=== PATIENT | male | born 1955 | race Caucasian/White ===

== ENCOUNTER 2018-05-21 13:06 | Inpatient (IN) | payer OTHER ==
[~2018-05-21] VITALS: Ht 185.4 cm; Wt 90.7 kg
[~2018-05-21 13:06] MED LIST: MULT1TAB64 PO
--- NOTE | 2018-05-21 13:16 | ER Report ---
History and Physical Time Seen By MD: 13:16 HPI/ROS CHIEF COMPLAINT: Distended abdomen HISTORY OF PRESENT ILLNESS: 62-year-old male patient presents to emergency room with complaint of distended abdomen. Patient states that this been going on for the last 6 months. He states that typically his bowels will alternate between normal and diarrhea. He states that he was seen initially approximately 3 months ago and told that his stomach issue was related to nerves. He states that he went in and was seen at the [facility] acute[facility]care [facility] today. He states they did an abdominal x-ray noted that he had significant gaseous distention of the entir e intestines. At that time they wanted to go ahead and do a CT scan of the abdomen and pelvis, however his insurance refused that. He was referred to the emergency room for further evaluation. Patient states that he has a full sensation of his abdomen, he does not have any pain. He denies having any nausea, vomiting or diarrhea. Patient states that he's had diarrhea today. REVIEW OF SYSTEMS: Respiratory: No cough, no dyspnea. Cardiovascular: No chest pain, no palpitations. Gastrointestinal: As noted above Musculoskeletal: No back pain. Allergies: Coded Allergies: No Known Drug Allergies (Unverified , 07/28/14) Home Meds Reported Medications Multivitamin (MULTI VITAMIN DAILY) 1 Each Tablet, 1 EACH PO DAILY 07/28/14 Past Medical/Surgical History Patient has a past medical history of [place] hand Patient has a past surgical history of tonsillectomy, vasectomy. Reviewed Nurses Notes: Yes Constitutional Vital Sign - Last 24 Hours 05/21/18 05/21/18 05/21/18 05/21/18 13:11 13:14 13:17 13:21 Temp 98.7 Pulse 84 82 Resp 18 B/P (MAP) 131/100 131/100 (110) 135/91 (106) Pulse Ox 93 93 O2 Delivery Room Air 05/21/18 05/21/18 05/21/18 05/21/18 13:30 13:36 13:51 14:00 Pulse 76 76 B/P (MAP) 126/92 (103) 140/98 (112) Pulse Ox 93 93 05/21/18 05/21/18 05/21/18 05/21/18 14:06 14:21 14:30 14:36 Pulse 80 76 79 B/P (MAP) 151/100 (117) Pulse Ox 94 94 94 05/21/18 05/21/18 05/21/18 05/21/18 14:51 15:00 15:05 15:20 Pulse 78 ? B/P (MAP) ???/??? (1665) Pulse Ox 92 05/21/18 05/21/18 05/21/18 05/21/18 15:30 15:35 15:50 16:00 Pulse 75 76 B/P (MAP) 134/94 (107) 138/94 (109) Pulse Ox 91 91 05/21/18 05/21/18 05/21/18 05/21/18 16:05 16:20 16:30 16:35 Pulse 77 74 76 B/P (MAP) 119/92 (101) Pulse Ox 92 93 91 Physical Exam General Appearance: The patient is alert, has no immediate need for airway protection and no current signs of toxicity. Respiratory: Chest is non tender, lungs are clear to auscultation. Cardiac: regular rate and rhythm Gastrointestinal: Abdomen is distended and non tender, no masses, bowel sounds normal but tympanic. Musculoskeletal: Neck: Neck is supple and non tender. Extremities have full range of motion and are non tender. Skin: No rashes or lesions. DIFFERENTIAL DIAGNOSIS: After history and physical exam differential diagnosis was considered for bowel obstruction, partial bowel obstruction, cancer. Medical Decision Making Data Points Result Diagram: 05/21/18 0000 05/21/18 0000 Laboratory Hematology Test 05/21/18 00:00 05/21/18 13:11 Red Blood Count 5.38 M/uL (4.00-5.60) Mean Corpuscular Volume 91.3 fL (80.0-96.0) Mean Corpuscular Hemoglobin 31.1 pg (26.0-33.0) Mean Corpuscular Hemoglobin Concent 34.0 g/dL (32.0-36.0) Red Cell Distribution Width 13.4 % (11.5-14.5) Mean Platelet Volume 7.5 fL (7.2-11.1) Neutrophils (%) (Auto) 65.4 % (39.4-72.5) Lymphocytes (%) (Auto) 23.2 % (17.6-49.6) Monocytes (%) (Auto) 9.0 % (4.1-12.4) Eosinophils (%) (Auto) 1.8 % (0.4-6.7) Basophils (%) (Auto) 0.6 % (0.3-1.4) Nucleated RBC Relative Count (auto) 0.0 /100WBC Neutrophils # (Auto) 4.5 K/uL (2.0-7.4) Lymphocytes # (Auto) 1.6 K/uL (1.3-3.6) Monocytes # (Auto) 0.6 K/uL (0.3-1.0) Eosinophils # (Auto) 0.1 K/uL (0.0-0.5) Basophils # (Auto) 0.0 K/uL (0.0-0.1) Nucleated RBC Absolute Count (auto) 0.00 K/uL Sodium Level 141 mmol/L (137-145) Potassium Level 3.9 mmol/L (3.5-5.0) Chloride Level 106 mmol/L (98-107) Carbon Dioxide Level 25 mmol/L (22-30) Blood Urea Nitrogen 18 mg/dl (9-21) Creatinine 1.10 mg/dl (0.66-1.25) Glomerular Filtration Rate Calc > 60.0 Random Glucose 104 mg/dl (75-110) Calcium Level 9.1 mg/dl (8.4-10.2) Total Bilirubin 0.8 mg/dl (0.2-1.3) Aspartate Amino Transf (AST/SGOT) 19 U/L (0-35) Alanine Aminotransferase (ALT/SGPT) 26 U/L (0-56) Alkaline Phosphatase 77 U/L (0-126) C-Reactive Protein < 0.5 mg/dl (<1.0) Total Protein 7.4 g/dl (6.3-8.2) Albumin 4.2 g/dl (3.5-5.0) Amylase Level 60 U/L (0-110) Lipase 50 U/L (23-300) Urine Color Yellow Urine Clarity Clear Urine pH 5.0 pH (4.8-9.5) Urine Specific [place] 1.028 Urine Protein Negative mg/dL (NEGATIVE) Urine Glucose (UA) Negative mg/dL (NEGATIVE) Urine Ketones Negative mg/dL (NEGATIVE) Urine Blood Negative (NEGATIVE) Urine Nitrite Negative (NEGATIVE) Urine Bilirubin Negative (NEGATIVE) Urine Urobilinogen Negative mg/dL (0.2-1.9) Urine Leukocyte Esterase Negative (NEGATIVE) Urine RBC None /HPF (0-2/HPF) Urine WBC <1 /HPF (0-5/HPF) Urine Squamous Epithelial Cells None /LPF (</=FEW) Urine Bacteria Negative /HPF (NONE-FEW) Urine Mucus Few /HPF (NONE-FEW) Chemistry Test 05/21/18 00:00 05/21/18 13:11 White Blood Count 7.0 k/uL (4.5-11.0) Red Blood Count 5.38 M/uL (4.00-5.60) Hemoglobin 16.7 g/dL (14.0-18.0) Hematocrit 49.1 % (42.0-52.0) Mean Corpuscular Volume 91.3 fL (80.0-96.0) Mean Corpuscular Hemoglobin 31.1 pg (26.0-33.0) Mean Corpuscular Hemoglobin Concent 34.0 g/dL (32.0-36.0) Red Cell Distribution Width 13.4 % (11.5-14.5) Platelet Count 280 K/uL (150-450) Mean Platelet Volume 7.5 fL (7.2-11.1) Neutrophils (%) (Auto) 65.4 % (39.4-72.5) Lymphocytes (%) (Auto) 23.2 % (17.6-49.6) Monocytes (%) (Auto) 9.0 % (4.1-12.4) Eosinophils (%) (Auto) 1.8 % (0.4-6.7) Basophils (%) (Auto) 0.6 % (0.3-1.4) Nucleated RBC Relative Count (auto) 0.0 /100WBC Neutrophils # (Auto) 4.5 K/uL (2.0-7.4) Lymphocytes # (Auto) 1.6 K/uL (1.3-3.6) Monocytes # (Auto) 0.6 K/uL (0.3-1.0) Eosinophils # (Auto) 0.1 K/uL (0.0-0.5) Basophils # (Auto) 0.0 K/uL (0.0-0.1) Nucleated RBC Absolute Count (auto) 0.00 K/uL Glomerular Filtration Rate Calc > 60.0 Calcium Level 9.1 mg/dl (8.4-10.2) Total Bilirubin 0.8 mg/dl (0.2-1.3) Aspartate Amino Transf (AST/SGOT) 19 U/L (0-35) Alanine Aminotransferase (ALT/SGPT) 26 U/L (0-56) Alkaline Phosphatase 77 U/L (0-126) C-Reactive Protein < 0.5 mg/dl (<1.0) Total Protein 7.4 g/dl (6.3-8.2) Albumin 4.2 g/dl (3.5-5.0) Amylase Level 60 U/L (0-110) Lipase 50 U/L (23-300) Urine Color Yellow Urine Clarity Clear Urine pH 5.0 pH (4.8-9.5) Urine Specific [place] 1.028 Urine Protein Negative mg/dL (NEGATIVE) Urine Glucose (UA) Negative mg/dL (NEGATIVE) Urine Ketones Negative mg/dL (NEGATIVE) Urine Blood Negative (NEGATIVE) Urine Nitrite Negative (NEGATIVE) Urine Bilirubin Negative (NEGATIVE) Urine Urobilinogen Negative mg/dL (0.2-1.9) Urine Leukocyte Esterase Negative (NEGATIVE) Urine RBC None /HPF (0-2/HPF) Urine WBC <1 /HPF (0-5/HPF) Urine Squamous Epithelial Cells None /LPF (</=FEW) Urine Bacteria Negative /HPF (NONE-FEW) Urine Mucus Few /HPF (NONE-FEW) Urinalysis Test 05/21/18 13:11 Urine Color Yellow Urine Clarity Clear Urine pH 5.0 pH (4.8-9.5) Urine Specific [place] 1.028 Urine Protein Negative mg/dL (NEGATIVE) Urine Glucose (UA) Negative mg/dL (NEGATIVE) Urine Ketones Negative mg/dL (NEGATIVE) Urine Blood Negative (NEGATIVE) Urine Nitrite Negative (NEGATIVE) Urine Bilirubin Negative (NEGATIVE) Urine Urobilinogen Negative mg/dL (0.2-1.9) Urine Leukocyte Esterase Negative (NEGATIVE) Urine RBC None /HPF (0-2/HPF) Urine WBC <1 /HPF (0-5/HPF) Urine Squamous Epithelial Cells None /LPF (</=FEW) Urine Bacteria Negative /HPF (NONE-FEW) Urine Mucus Few /HPF (NONE-FEW) EKG/Imaging Imaging CT abdomen and pelvis with IV contrast Indication: Abdominal pain and distention. Comparison: None available. . Technique: Axial CT images were obtained through the abdomen and pelvis during injection of nonionic iodinated intravenous contrast. Reformatted coronal and sagittal images were also obtained. One of the following dose optimization techniques was utilized in the performance of this exam: Automated exposure control; adjustment of the mA a nd/or kV according to the patient's size; or use of an iterative reconstruction technique. Specific details can be referenced in the facility's radiology CT exam operational policy. Contrast: 75 ml of Isovue-370 IV contrast. Findings: Lower lung love: Limited views lower lung field are unremarkable. Liver: The dome of the liver does show a faint 1.3 cm hypodensity which is not a simple cyst. Lateral to this is some mild ill-defined enhancement. The liver shows no other focal abnormality. Biliary: Gallbladder is not visualized may been surgically removed. Biliary system is unremarkable. Pancreas: Fatty infiltration without focal abnormality. Spleen: Normal appearance. Adrenal glands: Unremarkable. Kidneys / retroperitoneum: No evidence of nephrolithiasis or hydronephrosis. Th e left kidney shows a 2.2 cm cyst and a tiny cyst. No solid renal lesion. The right kidney shows a subcentimeter hypodensity which is likely is tiny cyst without other focal abnormality. Bowel / peritoneum / mesenteries: The colon is diffusely mildly distended from the mid sigmoid region. At the mid sigmoid region there is a focal area of luminal narrowing and focal wall thickening without inflammation. The distention of the colon extends into the distal small bowel. The mid to proximal small bowel is unremarkable. No focal abnormalities otherwise seen in the GI tract. The stomach is unremarkable. The appendix appears normal. No free air, free fluid, fluid collections or areas of inflammation. Small umbilical hernia containing fat. Lymph node assessment: No pathologic adenopathy identified. Pelvic structures: Prostate is heterogeneous and enlarged causing impression to the urinary bladder. No other focal abnormality. The remaining pelvic structures visualized within normal limits. Vessels: No significant atherosclerotic calcifications seen throughout a nonan eurysmal abdominal aorta and branches. Musculoskeletal / Body wall: No acute or aggressive osseous abnormality. IMPRESSION: 1. The mid sigmoid colon does show focal area of luminal narrowing and wall thickening without inflammation. This could represent a contraction versus a sigmoid lesion. Proximal to this area the colon is distended which extends into the small bowel shows mild small bowel stasis distention of the distal small bowel is no other focal abnormality. The sigmoid process could be causing this early mild obstruction. Suggest a sigmoidoscopy for further evaluation to exclude a lesion. 2. The dome of liver does show a hypodense lesion which is not a simple cyst. This could represent a benign lesion such as adenoma or hemangioma. Lateral to this is a area of ill-defined enhancement which could be a vascular anomaly versus a ill-defined lesion. Suggest a follow-up nonemergent MRI of the liver, without and with contrast for further evaluation. 3. Left renal cyst. 4. Enlarged prostate which is heterogeneous causing impression to the urinary bladder. 5. Other chronic findings as above. I called report to MARLIN NORRIS at 05/21/2018 3:47 PM. Report Dictated By: Lazaro Ribera at 05/21/2018 3:36 PM Report E-Signed By: Lazaro Ribera at 05/21/2018 3:50 PM ED Course/Re-evaluation ED Course Patient was admitted to an exam room, history and physical were obtained. Differential diagnoses were considered. On examination patient has a very distended abdomen, the skin is tight. There is a lot of of bowel sounds. A CBC, CMP, urinalysis were obtained. Lab results were unremarkable. A CT scan of the abdomen and pelvis was done which showed significant dilation of the large intestine with narrowing in the mid sigmoid colon. I discussed the findings with the patient. I would patient does need to be admitted to the hospital. I spoke with Dr. Juárez, general surgeon and reviewed the case. He did agree to accept the patient for admission with plans to do a bowel prep and a colonoscopy. I discussed the plans with the patient and his and they verbalized understanding and agreement. Decision to Disposition Date: May 21, 2018 Decision to Disposition Time: 16:00 Depart Departure Latest Vital Signs Vital Signs Date Time Temp Pulse Resp B/P (MAP) Pulse Ox O2 Delivery O2 Flow Rate FiO2 05/21/18 16:35 76 91 05/21/18 16:30 119/92 (101) 05/21/18 13:11 98.7 18 Room Air Impression: Primary Impression: Colon obstruction Condition: Condition Unchanged Disposition: Admitted from ER AMRLIN NORRIS May 21, 2018 13:16
[2018-05-21] MEDS ORDERED: NS(*) 0.9% 1000 ML BAG 1,000 ML IV ONE (13:22)
[2018-05-21 13:42] LABS: PLATELET COUNT, AUTOMATED 280 K/uL (150-450)
[2018-05-21] MEDS ORDERED: BARIUM SULFATE 450 ML SUSP ONE (13:45)
[2018-05-21] MEDS ORDERED: IOPAMIDOL 76% 75 ML INFUS BTL 75 ML ONE (15:07)
--- NOTE | 2018-05-21 15:54 | RADIOLOGY IMAGING REPORT ---
FACILITY: [facility] PATIENT NAME: Neto Muñiz : 1955 MR: [id number] V: [id number] EXAM DATE: ORDERING PHYSICIAN: MARLIN NORRIS TECHNOLOGIST: Location: [facility] Patient: Neto Muñiz : 1955 Visit/Account:[id number] Date of Sevice: 05/21/2018 CT abdomen and pelvis with IV contrast Indication: Abdominal pain and distention. Comparison: None available. . Technique: Axial CT images were obtained through the abdomen and pelvis during injection of nonioni c iodinated intravenous contrast. Reformatted coronal and sagittal images were also obtained. One of the following dose optimization techniques was utilized in the performance of this exam: Autom ated exposure control; adjustment of the mA and/or kV according to the patient's size; or use of an i terative reconstruction technique. Specific details can be referenced in the facility's radiology C T exam operational policy. Contrast: 75 ml of Isovue-370 IV contrast. Findings: Lower lung love: Limited views lower lung field are unremarkable. Liver: The dome of the liver does show a faint 1.3 cm hypodensity which is not a simple cyst. Latera l to this is some mild ill-defined enhancement. The liver shows no other focal abnormality. Biliary: Gallbladder is not visualized may been surgically removed. Biliary system is unremarkable. Pancreas: Fatty infiltration without focal abnormality. Spleen: Normal appearance. Adrenal glands: Unremarkable. Kidneys / retroperitoneum: No evidence of nephrolithiasis or hydronephrosis. The left kidney shows a 2.2 cm cyst and a tiny cyst. No solid renal lesion. The right kidney shows a subcentimeter hypoden sity which is likely is tiny cyst without other focal abnormality. Bowel / peritoneum / mesenteries: The colon is diffusely mildly distended from the mid sigmoid region . At the mid sigmoid region there is a focal area of luminal narrowing and focal wall thickening wit hout inflammation. The distention of the colon extends into the distal small bowel. The mid to prox imal small bowel is unremarkable. No focal abnormalities otherwise seen in the GI tract. The stomac h is unremarkable. The appendix appears normal. No free air, free fluid, fluid collections or areas of inflammation. Small umbilical hernia containi ng fat. Lymph node assessment: No pathologic adenopathy identified. Pelvic structures: Prostate is heterogeneous and enlarged causing impression to the urinary bladde r. No other focal abnormality. The remaining pelvic structures visualized within normal limits. Vessels: No significant atherosclerotic calcifications seen throughout a nonaneurysmal abdominal aort a and branches. Musculoskeletal / Body wall: No acute or aggressive osseous abnormality. IMPRESSION: 1. The mid sigmoid colon does show focal area of luminal narrowing and wall thickening without infla mmation. This could represent a contraction versus a sigmoid lesion. Proximal to this area the colo n is distended which extends into the small bowel shows mild small bowel stasis distention of the dis starla small bowel is no other focal abnormality. The sigmoid process could be causing this early mild obstruction. Suggest a sigmoidoscopy for further evaluation to exclude a lesion. 2. The dome of liver does show a hypodense lesion which is not a simple cyst. This could represent a benign lesion such as adenoma or hemangioma. Lateral to this is a area of ill-defined enhancement which could be a vascular anomaly versus a ill-defined lesion. Suggest a follow-up nonemergent MRI o f the liver, without and with contrast for further evaluation. 3. Left renal cyst. 4. Enlarged prostate which is heterogeneous causing impression to the urinary bladder. 5. Other chronic findings as above. I called report to MARLIN NORRIS at 05/21/2018 3:47 PM. Report Dictated By: Lazaor Ribera at 05/21/2018 3:36 PM Report E-Signed By: Lazaro Ribera at 05/21/2018 3:50 PM WSN:[id number]
[2018-05-21] MEDS ORDERED: ONDANSETRON 4 MG/2 ML VIAL IVP PRN (16:15)
[2018-05-21] MEDS ORDERED: FLUSH 10 ML SYR IVP PRN (16:15)
[2018-05-21] MEDS ORDERED: ACETAMINOPHEN(*)1000 MG/100 ML 100 ML IVPB PRN (16:15)
[2018-05-21] MEDS ORDERED: NALOXONE HCL 0.4 MG/ML VIAL IVP PRN (16:15)
[2018-05-21 17:14] VITALS: BP 155/109
[2018-05-21] MEDS: NS(*) 0.9% 1000 ML BAG 1,000 ML IV PRN (19:09)
[2018-05-21 21:15] VITALS: BP 146/95
--- NOTE | 2018-05-21 21:20 | Gen Surgery History & Physical ---
History of Present Illness Chief Complaint Bloating History of Present Illness 62-year-old gentleman presented to the urgent care center and then was sent to the ER with a complaint of worsening abdominal bloating. He's had these symptoms for the last month but they have gotten worse in the last 10 days. He has continued to pass flatus and loose stools. No nausea or vomiting. He had a colonoscopy 4 years ago where a polyp was removed but it was not retrieved and it was recommended that he have another colonoscopy in 5 years. He was going to get a colonoscopy this July. He denies any blood in his stools. He has no known family history of colorectal cancer. He had a CT scan completed in our emergency room and there is a lesion in his mid sigmoid colon which is leading to the partial colonic obstruction and so I have been consulted to further evaluate and treat this patient. History Home Meds Reported Medications Multivitamin (MULTI VITAMIN DAILY) 1 Each Tablet, 1 EACH PO DAILY 07/28/14 Allergies: Coded Allergies: No Known Drug Allergies (Unverified , 07/28/14) Patient History: FH: Alzheimers disease FATHER FH: Parkinson's disease FATHER FH: dementia FATHER Review of Systems All Systems Reviewed/Normal: Yes, Except as Noted Gastrointestinal: Diarrhea Exam General Appearance: Alert, Awake, No Acute Distress, Afebrile Neuro: No Gross deficits Eyes: PERRLA GI: Other (his abdomen is very distended and firm. There are no peritoneal signs. There is not really much tenderness to palpation but his abdomen is very protuberant and tympanic.) Extremities: Warm, Perfused Psych: Alert & Oriented X3, Appropriate Mood & Affect Medical Decision Making Data Points Result Diagram: 05/21/18 0000 05/21/18 0000 Assessment and Plan Problems: (1) Colon obstruction Status: Acute Assessment & Plan: 05/21/18: This patient has a partial colonic obstruction in his mid-sigmoid colon based on CT scan and clinically he has an obstruction bas ed on his distention. His entire colon proximal to the obstruction as well as his distal small bowel her dilated. The stomach and proximal small bowel are not dilated. He has not had issues with nausea or vomiting and his stomach does not look distended on CT so will hold off on placing an NG tube. We'll schedule him for a colonoscopy tomorrow morning, no prep will be needed or possible. Once I can assess the cause of the obstruction then I can better discuss surgery with him which we can complete later tomorrow evening or the next day. Will likely need exploratory laparotomy with sigmoid colectomy. I have discussed with him the high likelihood of needing a temporary colostomy due to the degree of distention of his colon and the high risk of anastomotic leak if anastomosis is attempted. He seems to understand the situation and he asked me several questions indicating he understood what was going on. I have explained colonoscopy as well as the surgery with him and the alternatives and the risks and expected recovery. He seems to understand this discussion, his questions been answered, he would like to proceed with this plan including colonoscopy tomorrow morning and surgical resection of the obstructing lesion later tomorrow or the next day. Condition Stable Time Spent: < 30 min Venous Thromboembolism VTE Risk Physician Assess for VTE Risk: Yes Patient's VTE Risk: Low VTE Diagnostic Test 2 Days Prior to Admit: No Antithrombotics Is Pt On Any Antithrombotics?: No ALEX MCMAHAN MD May 21, 2018 21:20
[2018-05-21 23:45] VITALS: BP 104/78
[2018-05-22] VITALS (14 sets, daily range): BP systolic 99–142; BP diastolic 74–94; Ht 185.4 cm; Wt 90.7 kg
[2018-05-22] MEDS: NS(*) 0.9% 1000 ML BAG 1,000 ML IV PRN (03:12)
[2018-05-22 06:00] LABS: PLATELET COUNT, AUTOMATED 242 K/uL (150-450)
[2018-05-22] MEDS ORDERED: KCL/D1/2NS 20 MEQ 1000 ML 1,000 ML IV SCH (06:15)
--- NOTE | 2018-05-22 06:15 | General Surgery Progress Note ---
Subjective Progress Notes Subjective Feeling better than last evening, abdomen feels less bloated/tight. Had several BMs, still passing flatus. Physical Exam Vital Signs Date Time Temp Pulse Resp B/P (MAP) Pulse Ox O2 Delivery O2 Flow Rate FiO2 05/22/18 03:14 98.6 69 17 117/79 (92) 88 Room Air Intake and Output 05/22/18 07:00 Intake Total 1000 ml Balance 1000 ml Intake IV Total 1000 ml # Voids 5 # Bowel Movements 5 General Appearance: Alert, Awake, No Acute Distress, Afebrile GI: Other (Soft, still very distended and tympanic, no TTP, no peritoneal signs.) Extremities: Warm, Perfused Result Diagram: 05/22/18 0543 05/21/18 0000 Assessment and Plan Problems: (1) Colon obstruction Status: Acute Assessment & Plan: 05/21/18: This patient has a partial colonic obstruction in his mid-sigmoid colon based on CT scan and clinically he has an obstruction based on his distention. His entire colon proximal to the obstruction as well as his distal small bowel her dilated. The stomach and proximal small bowel are not dilated. He has not had issues with nausea or vomiting and his stomach does not look distended on CT so will hold off on placing an NG tube. We'll schedule him for a colonoscopy tomorrow morning, no prep will be needed or possible. Once I can assess the cause of the obstruction then I can better discuss surgery with him which we can complete later tomorrow evening or the next day. Will likely need exploratory laparotomy with sigmoid colectomy. I have discussed with him the high likelihood of needing a temporary colostomy due to the degree of distention of his colon and the high risk of anastomotic leak if anastomosis is attempted. He seems to understand the situation and he asked me several questions indicating he understood what was going on. I have explained colonos copy as well as the surgery with him and the alternatives and the risks and expected recovery. He seems to understand this discussion, his questions been answered, he would like to proceed with this plan including colonoscopy tomorrow morning and surgical resection of the obstructing lesion later tomorrow or the next day. 05/22/18: Doing a little better symptomatically this morning. Still with partial colonic obstruction. Will proceed with partial colonoscopy later this morning and then surgical exploration with partial colectomy and likely colostomy later this evening. Pt remains agreeable with this plan. Will hold off lovenox until after surgery, continue PPI. Continue NPO/bowel rest/IV fluids until after surgery. Condition Stable. Time Spent: < 30 min Exam Sepsis Risk: No Definite Risk ALEX MCMAHAN MD May 22, 2018 06:15
[2018-05-22] MEDS: PANTOPRAZOLE SOD 40 MG IV VIAL IVP SCH (09:39)
[2018-05-22] MEDS ORDERED: NORMOSOL R SOLN(*) 1000 ML BAG 1,000 ML IV ONE ×2 (11:00→16:00)
[2018-05-22] MEDS ORDERED: PROPOFOL EMUL(*) 10MG/ML 20 ML 20 ML ONE ×3 (11:58→14:46)
[2018-05-22] MEDS ORDERED: fentaNYL CITR 250 MCG/5 ML AMP ONE (14:45)
[2018-05-22] MEDS ORDERED: LIDOCAINE 2% IV 100 MG/5ML SYR ONE (14:46)
[2018-05-22] MEDS ORDERED: PIPERACILLIN/TAZO*3.375GM VIAL 3.375 GM in NS(*) 0.9% 100 ML ADDVANT BAG 100 ML IVPB ONE (17:00)
[2018-05-22] MEDS ORDERED: KETAMINE HCL 200 MG/20 ML MDV ONE ×3 (17:16→19:17)
[2018-05-22] MEDS ORDERED: SUGAMMADEX SOD 500 MG/5 ML SDV ONE (17:42)
[2018-05-22] MEDS ORDERED: fentaNYL CITR 100 MCG/2 ML AMP ONE ×4 (18:11→21:01)
[2018-05-22] MEDS ORDERED: ACETAMINOPHEN(*)1000 MG/100 ML 100 ML IVPB ONE (19:07)
[2018-05-22] MEDS ORDERED: ROPIVACAINE 0.5% 20 ML VIAL ONE (19:12)
[2018-05-22] MEDS ORDERED: DEXAMETHASONE SOD 4 MG/ML VIAL ONE (19:42)
[2018-05-22] MEDS ORDERED: ONDANSETRON 4 MG/2 ML VIAL ONE (19:43)
[2018-05-22] MEDS ORDERED: HYDROGEN PEROXID 3% 473 ML BTL TP ONE (20:07)
--- NOTE | 2018-05-22 20:46 | Post Operative Progress Note ---
Post Operative Progress Note Date: May 22, 2018 Time: 20:32 Surgeon: Marquita Dictation number: [id number] Anesthesia: GETA by Dr. 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
[2018-05-22] MEDS: HYDROmorphone PCA 6 MG/30 ML IV PRN (22:02)
--- NOTE | 2018-05-22 22:13 | OPERATIVE REPORT 1 ---
EVENT DATE: May 22, 2018 SURGEON: Elmer Juárez MD ANESTHESIOLOGIST: Travis Tobias MD ANESTHESIA: General endotracheal anesthesia. PREOPERATIVE DIAGNOSES 1. Partial colon obstruction in the sigmoid colon. 2. Sigmoid colon stricture. POSTOPERATIVE DIAGNOSES 1. Partial colon obstruction in the sigmoid colon. 2. Sigmoid colon stricture. PROCEDURES PERFORMED 1. Exploratory laparotomy. 2. Sigmoid colectomy. 3. Colostomy. COMPLICATIONS None. CONDITION Stable. BLOOD LOSS Less than 100 mL. URINE OUTPUT 100 mL INTRAVENOUS FLUIDS Crystalloid 2.5 L. SPECIMEN Sigmoid colon. INDICATIONS This is a 62-year-old gentleman who presented to the Emergency Department with a 10-day history of worsening abdominal distention, although he was passing flatus and stool. A CT scan was suspicious for a stenotic lesion in his mid sigmoid colon with obvious obstruction, and his colon was entirely dilated from this stricture proximally all the way to the small bowel. The distal small bowel was dilated as well. I admitted the patient and started him on IV fluids. This morning, I performed a partial colonoscopy, and I was able to traverse the stricture. It appeared to be extrinsic, and there was not any evidence of obvious cancer. With this information, I recommended to the patient that we perform exploratory laparotomy with resection of a portion of his colon that had the stricture in it and probable colostomy. He provided consent for this procedure. DESCRIPTION OF PROCEDURE The patient was brought to the operating room and placed supine on the operating table. General endotracheal anesthesia was administered, and he was placed in Yellofin stirrups in low lithotomy. His perineum was prepped, and then his abdomen was separately prepped and draped in a sterile fashion. Timeout was completed, and I injected the midline skin with 0.5% ropivacaine plain. I made a vertical incision starting with the suprapubic region and initially going up to just below the umbilicus, but when I got into the belly, his intestines were so dilated I needed more exposure, so ultimately extended this incision around the left side of the umbilicus to the epigastric region. I dissected through the dermis and subcutaneous fat until I identified the midline fascia. I made a vertical incision in the midline fascia, identified the peritoneum, and entered the peritoneal cavity with no problems. I placed my hand underneath the peritoneum and opened up the fascia and peritoneum along the entire length of the skin incisions. I then eviscerated the patient and ran his bowel from ligament of Treitz to the terminal ileum. His entire small bowel except for probably the first two feet were very dilated. The first two feet were no so dilated. I did not find any abnormalities in the small bowel. I then inserted a Bookwalter retractor system, set it up, and gained retraction. I took the small bowel up into the upper abdomen, and I palpated the sigmoid colon and identified the problem. There appeared to be a phlegmonous mass in the mid sigmoid colon. I mobilized the proximal sigmoid colon by dividing the lateral attachment along the white line of Toldt, medializing the sigmoid colon, and doing this all the way down to distal to the phlegmon. This area was very tight at the phlegmon, and the mesentery was nonexistent in that area. It was adherent to the retroperitoneum and the left lateral pelvic sidewall. I did find a healthy-appearing upper rectum distal to this where the taenia had splayed, and so I found spot on the mesentery several centimeters distal to this phlegmon near the peritoneal reflection and made a window in the mesentery at this location. I divided the colon with a Contour stapler with a blue load at this location. I identified a healthy-appearing and feeling portion of sigmoid colon approximately 5 cm proximal to this area of phlegmon and made a window adjacent to this. I used a linear stapler with a blue load and divided the colon in this place. The colon was so big that even though I was using a 75 mm stapler, I had to use two loads as the first load did not go all the way across the colon. I then used the Harmonic scalpel and divided the mesocolon near its root, but as far posterior as I could get. I tried to go as far laterally around this phlegmon, but for fear of getting into the ureter, I was very limited in how lateral I could go. The natural tissue planes were nonexistent in this area, so I stayed more medially so as to avoid injuring his ureter. Ultimately, I was able to free this up and divide the entire mesocolon in this area. I then removed the specimen and then inspected it externally. I noted this looked to be an extrinsic stricture with omentum that was surrounding circumferentially the sigmoid colon in this area. It was very tight. This made me think this is more related to something like diverticulitis that resulted in this stricture as opposed to a neoplasm. I did not see any evidence of a neoplasm on the scope this morning. The specimen was passed off the field. I looked in the patient's abdomen, and everything was hemostatic with no active bleeding. I did look for the ureter and did find the area where I thought the ureter to be, but I did not do a lot of dissection there because I did not want to injure the ureter, but I did not see any tubular structures were injured in mobilizing the sigmoid colon or this phlegmon. I placed two long 2-0 Prolene sutures in each end of the staple line on the patient's rectum so to make finding the rectal stump easier when the patient desires to proceed with a colostomy takedown. I then irrigated the patient's abdomen with 5 L of warm normal saline and made sure I removed all of the saline. We then took down the Bookwalter retractor system and ran the bowel once again. There were no other abnormalities found. We made sure to remove all of our towels and lap sponges from the patient's abdomen, and an instrument and sponge count was completed at this point. All laps, sponges, towels, and instruments were accounted for at this time. I then mobilized a little bit more of the distal descending colon to create a little length to create the colostomy. I then anesthetized the skin in the patient's left mid abdomen and removed a silver dollar sized piece of skin and dissected through the subcutaneous fat. I then made a cruciate incision in the anterior abdominal fascia and then split the muscles without divided them. I then went through the posterior fascia through the peritoneum while my hand was underneath protecting the underlying viscera. I then created a large enough incision to accommodate two to three of my fingers through this passage. The patient's colon was very large. I had to make the hole bigger than normal to accommodate his very large colon. I was able to pull it through and had plenty of length so that I had approximately 5 cm of colon from the skin to the staple line, and then I secured it so that it did not recede back through this hole while I closed the midline incision. I then closed the midline fascia with running 0 looped PDS sutures. I then irrigated and dried the wound and closed the skin with paula. I then protected this midline incision with a 1010 drape and then matured the stoma. I matured the stoma by sewing 3-0 Vicryl interrupted sutures around the edges at the portion of the colon that was at the level of the skin. When this was completed, I cut off the staple line and everted the colon so that I created a Olga Lidia type of stoma. I initially secured it to the skin with interrupted 4-0 Monocryl sutures and then ran a 4-0 Monocryl circumferentially around. It looked good with perfused colon, but it was very, very large because of the megacolon nature of the patient's colon upstream to the obstruction. We then cleaned and dried the skin while keeping the 1010 drape over the midline incision, then placed the stoma appliance around the stoma, then removed the 1010 drape, switched to new gloves, washed the patient's abdomen with hydrogen peroxide, then cleaned off the skin, dried the skin, and then placed a sterile surgical dressing over the midline incision. The patient was awakened and extubated in the operating room. He was transported to the recovery room in stable condition having tolerated the procedure without any apparent problems. VALENTIN
[2018-05-23] VITALS (13 sets, daily range): BP systolic 97–115; BP diastolic 64–78
[2018-05-23] MEDS: KCL/D1/2NS 20 MEQ 1000 ML 1,000 ML IV SCH ×4 (00:10→20:30)
--- NOTE | 2018-05-23 07:11 | General Surgery Progress Note ---
Subjective Progress Notes Subjective Feeling fairly good this morning. Not too much pain. Physical Exam Vital Signs Date Time Temp Pulse Resp B/P (MAP) Pulse Ox O2 Delivery O2 Flow Rate FiO2 05/23/18 06:08 12 92 05/23/18 06:00 62 97/65 (76) Nasal Cannula 3.0 05/23/18 04:51 97.7 Intake and Output 05/23/18 06:59 Intake Total 3170 ml Output Total 650 ml Balance 2520 ml Intake IV Total 3170 ml Output Urine Total 550 ml Estimated Blood Loss 100 ml # Voids 2 # Bowel Movements 2 General Appearance: Alert, Awake, No Acute Distress, Afebrile GI: Other (Soft, appropriate postop TTP, stoma is pink, no gas or stool in bag. Midline dressing is C/D/I.) Extremities: Warm, Perfused Result Diagram: 05/22/18 0543 05/22/18 0543 Assessment and Plan Problems: (1) Colon obstruction Status: Acute Assessment & Plan: 05/21/18: This patient has a partial colonic obstruction in his mid-sigmoid colon based on CT scan and clinically he has an obstruction based on his distention. His entire colon proximal to the obstruction as well as his distal small bowel her dilated. The stomach and proximal small bowel are not dilated. He has not had issues with nausea or vomiting and his stomach does not look distended on CT so will hold off on placing an NG tube. We'll schedule him for a colonoscopy tomorrow morning, no prep will be needed or possible. Once I can assess the cause of the obstruction then I can better discuss surgery with him which we can complete later tomorrow evening or the next day. Will likely need exploratory laparotomy with sigmoid colectomy. I have discussed with him the high likelihood of needing a temporary colostomy due to the degree of distention of his colon and the high risk of anastomotic leak if anastomosis is attempted. He seems to understand the situation and he asked me several questions indicating he understood what was going on. I have explained colonoscopy as well as the surgery with him and the alternatives and the risks and expected recovery. He seems to understand this discussion, his questions been answered, he would like to proceed with this plan including colonoscopy tomorrow morning and surgical resection of the obstructing lesion later tomorrow or the next day. 05/22/18: Doing a little better symptomatically this morning. Still with partial colonic obstruction. Will proceed with partial colonoscopy later this morning and then surgical exploration with partial colectomy and likely colostomy later this evening. Pt remains agreeable with this plan. Will hold off lovenox until after surgery, continue PPI. Continue NPO/bowel rest/IV fluids until after surgery. 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 Pt is doing well this morning. Continue NPO, IV fluids; awaiting return of bowel function. Continue PPI, lovenox, IS, pulmonary hygiene, ambulation. Condition Stable. Time Spent: < 30 min Exam Sepsis Risk: No Definite Risk ALEX MCMAHAN MD May 23, 2018 07:11
[2018-05-23 07:48] LABS: PLATELET COUNT, AUTOMATED 246 K/uL (150-450)
[2018-05-23] MEDS: HYDROmorphone PCA 6 MG/30 ML IV PRN ×2 (07:54→20:12)
[2018-05-23] MEDS: PANTOPRAZOLE SOD 40 MG IV VIAL IVP SCH (09:35)
[2018-05-23] MEDS ORDERED: ACETAMINOPHEN(*)1000 MG/100 ML 100 ML IVPB SCH (21:00)
[2018-05-23] MEDS: KETOROLAC 30 MG/ML VIAL IVP SCH (21:24)
[2018-05-24] VITALS (7 sets, daily range): BP systolic 102–126; BP diastolic 61–79
[2018-05-24] MEDS: KCL/D1/2NS 20 MEQ 1000 ML 1,000 ML IV SCH ×3 (02:04→20:02)
[2018-05-24] MEDS: KETOROLAC 30 MG/ML VIAL IVP SCH ×4 (03:41→20:56)
[2018-05-24] MEDS: ACETAMINOPHEN(*)1000 MG/100 ML 100 ML IVPB SCH ×3 (05:38→17:34)
[2018-05-24 05:57] LABS: PLATELET COUNT, AUTOMATED 182 K/uL (150-450)
--- NOTE | 2018-05-24 07:02 | General Surgery Progress Note ---
Subjective Progress Notes Subjective No complaints this morning. Was bloated last night but stoma output really picked up overnight and now he's less bloated and having less pain. He's feeling "pretty good." Physical Exam Vital Signs Date Time Temp Pulse Resp B/P (MAP) Pulse Ox O2 Delivery O2 Flow Rate FiO2 05/24/18 03:47 91 05/24/18 03:44 66 102/62 (75) 91 Nasal Cannula 2.0 05/23/18 20:17 98.7 Intake and Output 05/24/18 07:00 Intake Total 2229 ml Output Total 1175 ml Balance 1054 ml Intake Oral 0 ml IV Total 2229 ml Output Urine Total 875 ml Stool Total 300 ml # Bowel Movements 0 General Appearance: Alert, Awake, No Acute Distress, Afebrile GI: Other (Soft, appropriate postop TTP, dressing removed, incision looks good without erythema or drainage. Stoma is pink with stool in bag.) Extremities: Warm, Perfused Result Diagram: 05/24/1851505/24/18515 Assessment and Plan Problems: (1) Colon obstruction Status: Acute Assessment & Plan: 05/21/18: This patient has a partial colonic obstruction in his mid-sigmoid colon based on CT scan and clinically he has an obstruction based on his distention. His entire colon proximal to the obstruction as well as his distal small bowel her dilated. The stomach and proximal small bowel are not dilated. He has not had issues with nausea or vomiting and his stomach does not look distended on CT so will hold off on placing an NG tube. We'll schedule him for a colonoscopy tomorrow morning, no prep will be needed or possible. Once I can assess the cause of the obstruction then I can better discuss surgery with him which we can complete later tomorrow evening or the next day. Will likely need exploratory laparotomy with sigmoid colectomy. I have discussed with him the high likelihood of needing a temporary colostomy due to the degree of distention of his colon and the high risk of anastomotic leak if anastomosis is attempted. He seems to understand the situation and he asked me several questions indicating he understood what was going on. I have explained colonoscopy as well as the surgery with him and the alternatives and the risks and expected recovery. He seems to understand this discussion, his questions been answered, he would like to proceed with this plan including colonoscopy tomorrow morning and surgical resection of the obstructing lesion later tomorrow or the next day. 05/22/18: Doing a little better symptomatically this morning. Still with partial colonic obstruction. Will proceed with partial colonoscopy later this morning and then surgical exploration with partial colectomy and likely colostomy later this evening. Pt remains agreeable with this plan. Will hold off lovenox until after surgery, continue PPI. Continue NPO/bowel rest/IV fluids until after surgery. 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 Pt is doing well this morning. Continue NPO, IV fluids; awaiting return of bowel function. Continue PPI, lovenox, IS, pulmonary hygiene, ambulation. 05/24/18: POD#2. Doing well. Having increased output from colostomy. Will start sips/chips, etc but will start slow given how dilated his small and large bowel were during surgery. Continue IV fluids, [employer], PPI, lovenox, IS, pulmonary hygiene, ambulation, etc. Start stoma teaching. Condition Stable. Time Spent: < 30 min Exam Sepsis Risk: No Definite Risk ALEX MCMAHAN MD May 24, 2018 07:02
[2018-05-24] MEDS: PANTOPRAZOLE SOD 40 MG IV VIAL IVP SCH (09:51)
[2018-05-24] MEDS: ENOXAPARIN 40 MG/0.4ML SYR SC SCH (09:52)
--- NOTE | 2018-05-24 13:01 | Medical Nutrition Therapy ---
Nutrition Anthropometrics Height (Inches): 73.00 Height (Calculated Centimeters: 185.522468 Weight (Pounds): 200 (stated wt) Weight (Calculated Kilograms): 90.718 BMI: 26.4 Paxton Nutrition Score: Probably Inadequate Paxton Nutrition Risk Score: 16 Dietary Referral Nutrition Risk Factors: Nutrition Risk Comment: Physical Findings Physical Appearance: Overweight BMI 25-29 Skin Appearance Skin Appearance: Edema Edema Location Modifier: Edema Location: Type of Edema: Degree of Edema: Gastrointestinal Symptoms GI Symtoms: Appetite Changes, Change in Bowel Pattern Tube Present: Bowel Sounds: Recent Bowel Pattern: Diarrhea Stool Characteristics: Nutritional Diagnosis Nutritional Risk Acuity 1: GI Obstruction Nutritional Risk Acuity 2: New Colostomy Nutritional Acuity: 1-High Nutrition Diagnosis: Altered GI Function Nutrition Etiology: Physiological Causes Nutrition Problem/Etiology/Sym: AEB SBO and colostomy Adjusted Energy Requirement Re: 2300 (M- StJ) Protein Requirement: 90 (1gm/kg) Fluid Requirement: 2700 (30ml/kg) Diet Type: NPO (Nothing by Mouth) Nutrition Intervention: Incr diet as tolerated Nutrition Monitoring & Eval Nutrition Goals: Eat 75-100% Meal RD Patient Assessment Time: [address] Assessment Type: RD Assessment Patient Nutrition Acuity: 1-High Follow Up Date: May 25, 2018 Nutritional Comment: 05/22 Pt admitted for SBO. Currently NPO for surgery. Alb WNR. Will cont to monitor. 05/24 Pt cont 3rd day NPO. Reocmmend nutr support if diet not advanced. Pt has hypoactive bowel sounds. Na low at 136, Hgb low at 13.9, Hct low at 39.9. Pt has new colostomy. Will provide educaytion when diet advances. NOBLE KENNEDY May 24, 2018 13:01
[2018-05-25] MEDS: ACETAMINOPHEN(*)1000 MG/100 ML 100 ML IVPB SCH ×5 (00:12→23:26)
[2018-05-25] MEDS: KETOROLAC 30 MG/ML VIAL IVP SCH ×4 (03:20→21:37)
[2018-05-25 03:22] VITALS: BP 140/97
[2018-05-25] MEDS: KCL/D1/2NS 20 MEQ 1000 ML 1,000 ML IV SCH ×2 (04:45→14:51)
[2018-05-25 06:36] LABS: PLATELET COUNT, AUTOMATED 190 K/uL (150-450)
[2018-05-25 07:50] VITALS: BP 134/90
[2018-05-25] MEDS: PANTOPRAZOLE SOD 40 MG IV VIAL IVP SCH (09:24)
[2018-05-25] MEDS: ENOXAPARIN 40 MG/0.4ML SYR SC SCH (09:25)
--- NOTE | 2018-05-25 11:21 | General Surgery Progress Note ---
Subjective Progress Notes Subjective No complaints this morning. Pain seems to be well controlled. Lots of gas and stool via colostomy. Feels hungry. Physical Exam Vital Signs Date Time Temp Pulse Resp B/P (MAP) Pulse Ox O2 Delivery O2 Flow Rate FiO2 05/25/18 08:10 96 Nasal Cannula 1.0 05/25/18 07:50 98.6 66 18 134/90 (105) Intake and Output 05/25/18 07:00 Intake Total 2285 ml Output Total 925 ml Balance 1360 ml IV Total 2285 ml Output Urine Total 425 ml Stool Total 500 ml # Voids 4 General Appearance: Alert, Awake, No Acute Distress, Afebrile GI: Other (soft, appropriate postop TTP, incision looks good. Stoma is pink and functional with gas and stool in the bag.) Extremities: Warm, Perfused Result Diagram: 05/25/1852005/25/18520 Assessment and Plan Problems: (1) Colon obstruction Status: Resolved Assessment & Plan: 05/21/18: This patient has a partial colonic obstruction in his mid-sigmoid colon based on CT scan and clinically he has an obstruction based on his distention. His entire colon proximal to the obstruction as well as his distal small bowel her dilated. The stomach and proximal small bowel are not dilated. He has not had issues with nausea or vomiting and his stomach does not look distended on CT so will hold off on placing an NG tube. We'll schedule him for a colonoscopy tomorrow morning, no prep will be needed or possible. Once I can assess the cause of the obstruction then I can better discuss surgery with him which we can complete later tomorrow evening or the next day. Will likely need exploratory laparotomy with sigmoid colectomy. I have discussed with him the high likelihood of needing a temporary colostomy due to the degree of d istention of his colon and the high risk of anastomotic leak if anastomosis is attempted. He seems to understand the situation and he asked me several questions indicating he understood what was going on. I have explained colonoscopy as well as the surgery with him and the alternatives and the risks and expected recovery. He seems to understand this discussion, his questions been answered, he would like to proceed with this plan including colonoscopy tomorrow morning and surgical resection of the obstructing lesion later tomorrow or the next day. 05/22/18: Doing a little better symptomatically this morning. Still with partial colonic obstruction. Will proceed with partial colonoscopy later this morning and then surgical exploration with partial colectomy and likely colostomy later this evening. Pt remains agreeable with this plan. Will hold off lovenox until after surgery, continue PPI. Continue NPO/bowel rest/IV fluids until after surgery. 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 Pt is doing well this morning. Continue NPO, IV fluids; awaiting return of bowel function. Continue PPI, love nox, IS, pulmonary hygiene, ambulation. 05/24/18: POD#2. Doing well. Having increased output from colostomy. Will start sips/chips, etc but will start slow given how dilated his small and large bowel were during surgery. Continue IV fluids, [employer]PERATIONS PROFESSIONAL, PPI, lovenox, IS, pulmonary hygiene, ambulation, etc. Start stoma teaching. 05/25/18: POD#3. Doing well. Bowel function is returning. Will start clear diet today. Path results back, c/w diverticulitis with stricture; no cancer seen in specimen. Will decrease rate of IV fluids. Continue O[employer] PROFESSIONAL, PPI, lovenox, IS, pulmonary hygiene, ambulation, etc. Continue stoma teaching. (2) Diverticulitis of large intestine with complication Status: Resolved (3) Status post To's procedure Status: Acute Condition Stable Time Spent: < 30 min Exam Sepsis Risk: No Definite Risk ALEX MCMAHAN MD May 25, 2018 11:21
[2018-05-25 12:32] VITALS: BP 147/91
--- NOTE | 2018-05-25 14:37 | Medical Nutrition Therapy ---
Nutrition Anthropometrics Height (Inches): 73.00 Height (Calculated Centimeters: 185.799415 Weight (Pounds): 200 (stated wt) Weight (Calculated Kilograms): 90.718 BMI: 26.4 Paxton Nutrition Score: Probably Inadequate Paxton Nutrition Risk Score: 17 Dietary Referral Nutrition Risk Factors: Nutrition Risk Comment: Physical Findings Physical Appearance: Overweight BMI 25-29 Skin Appearance Skin Appearance: Edema Edema Location Modifier: Edema Location: Type of Edema: Degree of Edema: Gastrointestinal Symptoms GI Symtoms: Appetite Changes, Change in Bowel Pattern Tube Present: Bowel Sounds: Recent Bowel Pattern: Diarrhea Stool Characteristics: Nutritional Diagnosis Nutritional Risk Acuity 1: GI Obstruction Nutritional Risk Acuity 2: New Colostomy Nutritional Acuity: 1-High Nutrition Diagnosis: Altered GI Function Nutrition Etiology: Physiological Causes Nutrition Problem/Etiology/Sym: AEB SBO and colostomy Adjusted Energy Requirement Re: 2300 (M- StJ) Protein Requirement: 90 (1gm/kg) Fluid Requirement: 2700 (30ml/kg) Diet Type: Clear Liquids Nutrition Intervention: Incr diet as tolerated Nutrition Monitoring & Eval RD Patient Assessment Time: [address] Assessment Type: RD Re-Assessment Patient Nutrition Acuity: 1-High Follow Up Date: May 26, 2018 Nutritional Comment: 05/22 Pt admitted for SBO. Currently NPO for surgery. Alb WNR. Will cont to monitor. 05/24 Pt cont 3rd day NPO. Reocmmend nutr support if diet not advanced. Pt has hypoactive bowel sounds. Na low at 136, Hgb low at 13.9, Hct low at 39.9. Pt has new colostomy. Will provide educaytion when diet advances. DEEPAK 05/25 Diet advanced to clear liquid today with no intake to report yet. I was going to provide some diet education for colostomy, but pt was inappropriate for interview. Will try tomorrow. No abnormal nutrition related labs today.-MAREN FRANK May 25, 2018 14:37
[2018-05-25 15:54] VITALS: BP 137/100
[2018-05-25 18:53] VITALS: BP 144/85
[2018-05-25 23:22] VITALS: BP 152/95
[2018-05-26] MEDS: KCL/D1/2NS 20 MEQ 1000 ML 1,000 ML IV SCH ×2 (01:34→08:54)
[2018-05-26] MEDS: KETOROLAC 30 MG/ML VIAL IVP SCH ×2 (02:45→09:26)
[2018-05-26 02:48] VITALS: BP 128/101
[2018-05-26] MEDS: ACETAMINOPHEN(*)1000 MG/100 ML 100 ML IVPB SCH (05:38)
[2018-05-26 08:42] VITALS: BP 134/89
[2018-05-26] MEDS ORDERED: ACETAMINOPHEN 325 MG TAB PO PRN (09:20)
[2018-05-26] MEDS ORDERED: IBUPROFEN 600 MG TAB PO PRN (09:20)
[2018-05-26] MEDS: PANTOPRAZOLE SOD 40 MG IV VIAL IVP SCH (09:26)
[2018-05-26] MEDS: ENOXAPARIN 40 MG/0.4ML SYR SC SCH (09:27)
--- NOTE | 2018-05-26 09:27 | General Surgery Progress Note ---
Subjective Progress Notes Subjective No complaints. Not much pain. Feels "a little" bloated but no N/V. Feels hungry. Physical Exam Vital Signs Date Time Temp Pulse Resp B/P (MAP) Pulse Ox O2 Delivery O2 Flow Rate FiO2 05/26/18 08:42 98.5 62 16 134/89 (104) 94 Room Air 05/25/18 08:10 1.0 Intake and Output 05/26/18 07:00 Intake Total 1340 ml Output Total 525 ml Balance 815 ml Intake Oral 240 ml IV Total 1100 ml Output Urine Total 275 ml Stool Total 250 ml # Voids 4 # Bowel Movements 2 General Appearance: Alert, Awake, No Acute Distress, Afebrile GI: Other (Soft, appropriate postop TTP, midline incision looks good without erythema or drainage. Stoma is pink, edematous, with stool and gas in the bag.) Extremities: Warm, Perfused Result Diagram: 05/25/1852005/25/18520 Assessment and Plan Problems: (1) Colon obstruction Status: Resolved Assessment & Plan: 05/21/18: This patient has a partial colonic obstruction in his mid-sigmoid colon based on CT scan and clinically he has an obstruction based on his distention. His entire colon proximal to the obstruction as well as his distal small bowel her dilated. The stomach and proximal small bowel are not dilated. He has not had issues with nausea or vomiting and his stomach does not look distended on CT so will hold off on placing an NG tube. We'll schedule him for a colonoscopy tomorrow morning, no prep will be needed or possible. Once I can assess the cause of the obstruction then I can better discuss surgery with him which we can complete later tomorrow evening or the next day. Will likely need exploratory laparotomy with sigmoid colectomy. I have discussed with him the high likelihood of needing a temporary colostomy due to the degree of distention of his colon and the high risk of anastomotic leak if anastomosis is attempted. He seems to understand the situation and he asked me several questions indicating he understood what was going on. I have explained colonoscopy as well as the surgery with him and the alternatives and the risks and expected recovery. He seems to understand this discussion, his questions been answered, he would like to proceed with this plan including colonoscopy tomorrow morning and surgical resection of the obstructing lesion later tomorrow or the next day. 05/22/18: Doing a little better symptomatically this morning. Still with partial colonic obstruction. Will proceed with partial colonoscopy later this morning and then surgical exploration with partial colectomy and likely colostomy later this evening. Pt remains agreeable with this plan. Will hold off lovenox until after surgery, continue PPI. Continue NPO/bowel rest/IV fluids until after surgery. 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 Pt is doing well this morning. Continue NPO, IV fluids; awaiting return of bowel function. Continue PPI, lovenox, IS, pulmonary hygiene, ambulation. 05/24/18: POD#2. Doing well. Having increased output from colostomy. Will start sips/chips, etc but will start slow given how dilated his small and large bowel were during surgery. Continue IV fluids, MD ALLERGY IMMUNOLOGY, PPI, lovenox, IS, pulmonary hygiene, ambulation, etc. Start stoma teaching. 05/25/18: POD#3. Doing well. Bowel function is returning. Will start clear diet today. Path results back, c/w diverticulitis with stricture; no cancer seen in specimen. Will decrease rate of IV fluids. Continue MD ALLERGY IMMUNOLOGY, PPI, lovenox, IS, pulmonary hygiene, ambulation, etc. Continue stoma teaching. 05/26/18: POD#4. Doing well. Bowel function is returning but he still has some bloating which I suspect will take a while to resolve since he's had symptoms of obstruction for over a month. He would like to try regular diet so will try this today; he's advised to start slowly and gradually increase his volume as he sees that he's tolerating the diet. Continue stoma teaching, PPI, lovenox, IS, pulmonary hygiene, ambulation. Will change meds to PO and stop MD ALLERGY IMMUNOLOGY and IV fluids. Possibly home tomorrow but will need to discuss home health nursing to continue stoma teaching after discharge. (2) Diverticulitis of large intestine with complication Status: Resolved (3) Status post To's procedure Status: Acute Condition Stable Time Spent: < 30 min Exam Sepsis Risk: No Definite Risk ALEX MCMAHAN MD May 26, 2018 09:27
--- NOTE | 2018-05-26 11:52 | Medical Nutrition Therapy ---
Nutrition Anthropometrics Height (Inches): 73.00 Height (Calculated Centimeters: 185.889205 Weight (Pounds): 200 (stated wt) Weight (Calculated Kilograms): 90.718 BMI: 26.4 Paxton Nutrition Score: Probably Inadequate [place]xton Nutrition Risk Score: 18 Dietary Referral Nutrition Risk Factors: Nutrition Risk Comment: Physical Findings Physical Appearance: Overweight BMI 25-29 Skin Appearance Skin Appearance: Edema Edema Location Modifier: Edema Location: Type of Edema: Degree of Edema: Gastrointestinal Symptoms GI Symtoms: Appetite Changes, Change in Bowel Pattern Tube Present: Bowel Sounds: Recent Bowel Pattern: Diarrhea Stool Characteristics: Nutritional Diagnosis Nutritional Risk Acuity 1: GI Obstruction Nutritional Risk Acuity 2: New Colostomy Nutritional Acuity: 1-High Nutrition Diagnosis: Altered GI Function Nutrition Etiology: Physiological Causes Nutrition Problem/Etiology/Sym: AEB SBO and colostomy Adjusted Energy Requirement Re: 2300 (M- StJ) Protein Requirement: 90 (1gm/kg) Fluid Requirement: 2700 (30ml/kg) Diet Type: Diet as Tolerated AINSLEY/REG Nutrition Intervention: Cont diet as ordered, Encourage intake Nutrition Monitoring & Eval RD Patient Assessment Time: [address] Assessment Type: RD Re-Assessment Patient Nutrition Acuity: 1-High Follow Up Date: May 29, 2018 Nutritional Comment: 05/22 Pt admitted for SBO. Currently NPO for surgery. Alb WNR. Will cont to monitor. 05/24 Pt cont 3rd day NPO. Reocmmend nutr support if diet not advanced. Pt has hypoactive bowel sounds. Na low at 136, Hgb low at 13.9, Hct low at 39.9. Pt has new colostomy. Will provide educaytion when diet advances. DEEPAK 05/25 Diet advanced to clear liquid today with no intake to report yet. I was going to provide some diet education for colostomy, but pt was inappropriate for interview. Will try tomorrow. No abnormal nutrition related labs today.-STANISLAV 05/26 Met with pt to provide nutrition education for his new colostomy. We talked about strategies to help with digestion (eat slowly and chew thoroughly) and foods that are recommended and not recommended. He seemed to have a strong understanding. He was advanced to AINSLEY this morning and hadn't eaten yet, but he will let us know if he has any issues. No new labs today. -MAREN FRANK May 26, 2018 11:52
[2018-05-26 15:06] VITALS: BP 136/98
[2018-05-26 18:52] VITALS: BP 134/101
[2018-05-26 22:33] VITALS: BP 143/101
[2018-05-27 04:10] VITALS: BP 120/91
[2018-05-27] MEDS ORDERED: ONDANSETRON 4 MG ODT TABDP SL PRN (05:20)
[2018-05-27 06:51] VITALS: BP 128/98
--- NOTE | 2018-05-27 07:41 | General Surgery Progress Note ---
Subjective Progress Notes Subjective No complaints this morning but he had an episode of nausea and emesis x1 overnight. He thinks it may have been due to eating breaded chicken for dinner last night. He was belching up the chicken and became nauseated due to this. No significant abdominal pain. Stoma continues to put out gas and stool. Physical Exam Vital Signs Date Time Temp Pulse Resp B/P (MAP) Pulse Ox O2 Delivery O2 Flow Rate FiO2 05/27/18 06:51 98.3 16 128/98 (108) 90 Room Air 05/27/18 04:10 88 05/25/18 08:10 1.0 Intake and Output 05/27/18 07:00 Intake Total 650 ml Balance 650 ml Intake Oral 650 ml # Voids 1 # Emeses 1 General Appearance: Alert, Awake, No Acute Distress, Afebrile GI: Soft and Non-Tender (Incision looks good without erythema or drainage. Stoma is pink with gas and stool in bag.) Extremities: Warm, Perfused Result Diagram: 05/25/1852005/25/18520 Assessment and Plan Problems: (1) Colon obstruction Status: Resolved Assessment & Plan: 05/21/18: This patient has a partial colonic obstruction in his mid-sigmoid colon based on CT scan and clinically he has an obstruction based on his distention. His entire colon proximal to the obstruction as well as his distal small bowel her dilated. The stomach and proximal small bowel are not dilated. He has not had issues with nausea or vomiting and his stomach does not look distended on CT so will hold off on placing an NG tube. We'll schedule him for a colonoscopy tomorrow morning, no prep will be needed or possible. Once I can assess the cause of the obstruction then I can better discuss surgery with him which we can complete later tomorrow evening or the next day. Will likely need exploratory laparotomy with sigmoid colectomy. I have discussed with him the high likelihood of needing a temporary colostomy due to the degree of distention of his colon and the high risk of anastomotic leak if anastomosis is attempted. He seems to understand the situation and he asked me several qu estions indicating he understood what was going on. I have explained colonoscopy as well as the surgery with him and the alternatives and the risks and expected recovery. He seems to understand this discussion, his questions been answered, he would like to proceed with this plan including colonoscopy tomorrow morning and surgical resection of the obstructing lesion later tomorrow or the next day. 05/22/18: Doing a little better symptomatically this morning. Still with partial colonic obstruction. Will proceed with partial colonoscopy later this morning and then surgical exploration with partial colectomy and likely colostomy later this evening. Pt remains agreeable with this plan. Will hold off lovenox until after surgery, continue PPI. Continue NPO/bowel rest/IV fluids until after surgery. 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 Pt is doing well this morning. Continue NPO, IV fluids; awaiting return of bowel function. Continue PPI, lovenox, IS, pulmonary hygiene, ambulation. 05/24/18: POD#2. Doing well. Having increased output from colostomy. Will start sips/chips, etc but will start slow given how dilated his small and large bowel were during surgery. Continue IV fluids, LIEUTENANT/DEPUTY, PPI, lovenox, IS, pulmonary hygiene, ambulation, etc. Start stoma teaching. 05/25/18: POD#3. Doing well. Bowel function is returning. Will start clear diet today. Path results back, c/w diverticulitis with stricture; no cancer seen in specimen. Will decrease rate of IV fluids. Continue LIEUTENANT/DEPUTY, PPI, lovenox, IS, pulmonary hygiene, ambulation, etc. Continue stoma teaching. 05/26/18: POD#4. Doing well. Bowel function is returning but he still has some bloating which I suspect will take a while to resolve since he's had symptoms of obstruction for over a month. He would like to try regular diet so will try this today; he's advised to start slowly and gradually increase his volume as he sees that he's tolerating the diet. Continue stoma teaching, PPI, lovenox, IS, pulmonary hygiene, ambulation. Will change meds to PO and stop LIEUTENANT/DEPUTY and IV fluids. Possibly home tomorrow but will need to discuss home health nursing to continue stoma teaching after discharge. 05/27/18: POD#5. Doing well but had an episode of emesis overnight. Will continue regular diet and follow this. Will as correctional counselor/case manager to see patient and arrange for home health nursing to assist with stoma care and continued stoma education after discharge. Hopefully home tomorrow. (2) Diverticulitis of large intestine with complication Status: Resolved (3) Status post To's procedure Status: Acute Condition Stable. Time Spent: < 30 min Exam Sepsis Risk: No Definite Risk ALEX MCMAHAN MD May 27, 2018 07:41
[2018-05-27] MEDS: PANTOPRAZOLE SOD 40 MG TABEC PO SCH (08:43)
[2018-05-27] MEDS: ENOXAPARIN 40 MG/0.4ML SYR SC SCH (08:45)
[2018-05-27 11:52] VITALS: BP 122/91
[2018-05-27 15:48] VITALS: BP 129/86
[2018-05-27 19:06] VITALS: BP 128/85
[2018-05-27 22:39] VITALS: BP 134/91
[2018-05-28 05:01] VITALS: BP 115/80
[2018-05-28 07:16] VITALS: BP 119/81
[2018-05-28] MEDS ORDERED: PER PO (08:45)
[2018-05-28] MEDS: PANTOPRAZOLE SOD 40 MG TABEC PO SCH (08:53)
[2018-05-28] MEDS: ENOXAPARIN 40 MG/0.4ML SYR SC SCH (08:53)
--- NOTE | 2018-05-28 09:10 | Short(Outpt) Discharge Summary ---
Discharge Summary Reason for Hosp/Final Diag: (1) Colon obstruction Status: Resolved Hospital Course & Plan: 05/21/18: This patient has a partial colonic obstruction in his mid-sigmoid colon based on CT scan and clinically he has an obstruction based on his distention. His entire colon proximal to the obstruction as well as his distal small bowel her dilated. The stomach and proximal small bowel are not dilated. He has not had issues with nausea or vomiting and his stomach does not look distended on CT so will hold off on placing an NG tube. We'll schedule him for a colonoscopy tomorrow morning, no prep will be needed or possible. Once I can assess the cause of the obstruction then I can better discuss surgery with him which we can complete later tomorrow evening or the next day. Will likely need exploratory laparotomy with sigmoid colectomy. I have discussed with him the high likelihood of needing a temporary colostomy due to the degree of distention of his colon and the high risk of anastomotic leak if anastomosis is attempted. He seems to understand the situation and he asked me several questions indicating he understood what was going on. I have explained colonoscopy as well as the surgery with him and the alternatives and the risks and expected recovery. He seems to understand this discussion, his questions been answered, he would like to proceed with this plan including colonoscopy tomorrow morning and surgical resection of the obstructing lesion later tomorrow or the next day. 05/22/18: Doing a little better symptomatically this morning. Still with partial colonic obstruction. Will proceed with partial colonoscopy later this morning and then surgical exploration with partial colectomy and likely colostomy later this evening. Pt remains agreeable with this plan. Will hold off lovenox until after surgery, continue PPI. Continue NPO/bowel rest/IV fluids until after surgery. 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 Pt is doing well this morning. Continue NPO, IV fluids; awaiting return of bowel function. Continue PPI, lovenox, IS, pulmonary hygiene, ambulation. 05/24/18: POD#2. Doing well. Having increased output from colostomy. Will start sips/chips, etc but will start slow given how dilated his small and large bowel were during surgery. Continue IV fluids, ICICLE MACHINE OPERATOR, PPI, lovenox, IS, pulmonary hygiene, ambulation, etc. Start stoma teaching. 05/25/18: POD#3. Doing well. Bowel function is returning. Will start clear diet today. Path results back, c/w diverticulitis with stricture; no cancer seen in specimen. Will decrease rate of IV fluids. Continue ICICLE MACHINE OPERATOR, PPI, lovenox, IS, pulmonary hygiene, ambulation, etc. Continue stoma teaching. 05/26/18: POD#4. Doing well. Bowel function is returning but he still has some bloating which I suspect will take a while to resolve since he's had symptoms of obstruction for over a month. He would like to try regular diet so will try this today; he's advised to start slowly and gradually increase his volume as he sees that he's tolerating the diet. Continue stoma teaching, PPI, lovenox, IS, pulmonary hygiene, ambulation. Will change meds to PO and stop ICICLE MACHINE OPERATOR and IV fluids. Possibly home tomorrow but will need to discuss home health nursing to continue stoma teaching after discharge. 05/27/18: POD#5. Doing well but had an episode of emesis overnight. Will continue regular diet and follow this. Will as case reviewer to see patient and arrange for home health nursing to assist with stoma care and continued stoma education after discharge. Hopefully home tomorrow. 05/28/18: POD#6. Doing well. No further N/V. Tolerating diet. Good stoma function. RN set up to assist with stoma care at home. Will d/c to home this morning. (2) Diverticulitis of large intestine with complication Status: Resolved (3) Status post To's procedure Status: Acute Departure Discharge to: Home, Self Care Discharge Instructions Home Meds Active Scripts Oxycodone/Acetaminophen (OXYCODONE/ACETAMINOPHEN 5MG/325 MG) 5 Mg/325 Mg Tab, 1 TAB PO Q4H PRN for PAIN, #30 TAB 0 Refills Prov:ALEX JUÁREZ MD 05/28/18 Reported Medications Multivitamin (MULTI VITAMIN DAILY) 1 Each Tablet, 1 EACH PO DAILY 07/28/14 Follow up Referrals: General Surgery - 06/04/18 @ Surgery, General with ALEX JUÁREZ MD You have a follow up appointment scheduled with Dr. Juárez on 06/04/18, at 2:00pm. Diet: Regular Activity: No Heavy Lifting Special Instructions: You may shower as desired but don't immerse the incision for 2 weeks after surgery. Avoid any activities that involve straining or lifting more than 10 pounds for 6 weeks after surgery. ALEX JUÁREZ MD May 28, 2018 09:10
[2018-05-28 10:46] VITALS: BP 110/77
== END 2018-05-28 11:05 | disposition home health service (06) | DRG 330 ==
LOC: ER 14:01 → MED 16:39
PROVIDERS: ADMIT Surgery; ATTEND Surgery
PROC: 0DJD8ZZ Inspection of Lower Intestinal Tract, Via Natural or Artificial Opening Endoscopic (ICD-10-PCS; 2018-05-21)
PROC: 0DBN0ZZ Excision of Sigmoid Colon, Open Approach (ICD-10-PCS; principal; 2018-05-22 11:38)
PROC: 0D1M0Z4 Bypass Descending Colon to Cutaneous, Open Approach (ICD-10-PCS; 2018-05-22 17:13)
DX: K56.690 Other partial intestinal obstruction (principal); K57.20 Diverticulitis of large intestine with perforation and abscess without bleeding; K59.39 Other megacolon; E78.5 Hyperlipidemia, unspecified; Z86.010 Personal history of colon polyps
CPT/HCPCS: 36415; 74177; 81001; 82040; 82150; 82247; 82310; 82374; 82435; 82565; 82947; 83690; 84075; 84132; 84155; 84295; 84450; 84460; 84520; 85025; 86140; 88307; 96360; 99284; A4406; C9113; J0131; J1100; J1170; J1650; J1885; J2001; J2405; J2543; J2704; J2795; J3010; J3480; J3490; J7030; J7050; Q9967; S0119

== ENCOUNTER 2018-08-22 02:41 | Inpatient (IN) | payer OTHER ==
[2018-08-22] VITALS (11 sets, daily range): BP systolic 106–127; BP diastolic 76–90
[~2018-08-22] VITALS: Ht 185.4 cm; Wt 88.0 kg
[~2018-08-22 02:41] MED LIST changes: +GLUC100026 PO; +IBUP-136 PO; +OXYC-854 PO; +PER PO
[2018-08-22] MEDS ORDERED: PREGABALIN 150 MG CAPSULE PO ONE (11:15)
[2018-08-22] MEDS ORDERED: NORMOSOL R SOLN(*) 1000 ML BAG 1,000 ML IV PRN (11:15)
[2018-08-22] MEDS ORDERED: AMPICILLIN/SULBACT (*) 3 GM VL 3 GM in NS(*) 0.9% 100 ML BAG 100 ML IVPB ONE (11:15)
[2018-08-22] MEDS ORDERED: MIDAZOLAM 2 MG/2 ML VIAL IVP PRN (11:15)
[2018-08-22] MEDS ORDERED: FAMOTIDINE 20 MG TAB PO ONE (11:15)
[2018-08-22] MEDS ORDERED: ACETAMINOPHEN 500 MG TAB PO ONE (11:15)
[2018-08-22] MEDS ORDERED: LIDOCAINE/SOD BICARB 8.4% SYR ID ONE (11:15)
[2018-08-22] MEDS ORDERED: fentaNYL CITR 250 MCG/5 ML AMP ONE (12:15)
[2018-08-22] MEDS ORDERED: ONDANSETRON 4 MG/2 ML VIAL ONE (12:15)
[2018-08-22] MEDS ORDERED: DEXAMETHASONE SOD 4 MG/ML VIAL ONE (12:15)
[2018-08-22] MEDS ORDERED: LIDOCAINE MPF 1% 5 ML VIAL ONE (12:15)
[2018-08-22] MEDS ORDERED: PROPOFOL EMUL(*) 10MG/ML 20 ML 20 ML ONE (12:15)
[2018-08-22] MEDS ORDERED: ROCURONIUM BROM 10 MG/ML 10 ML ONE (12:15)
[2018-08-22] MEDS ORDERED: SUGAMMADEX SOD 500 MG/5 ML SDV ONE (12:17)
[2018-08-22] MEDS ORDERED: KETAMINE HCL-NS 50 MG/5 ML SYR ONE (12:17)
[2018-08-22] MEDS ORDERED: ROPIVACAINE 0.5% 20 ML VIAL ONE (12:53)
[2018-08-22] MEDS ORDERED: HYDROmorphone HCL 2 MG/ML SDV ONE (15:16)
[2018-08-22] MEDS ORDERED: DESFLURANE 240 ML BTL INH ONE (16:52)
[2018-08-22] MEDS ORDERED: INDOCYANINE GREEN 25 MG VIAL IVP ONE (17:58)
[2018-08-22] MEDS ORDERED: ONDANSETRON 4 MG/2 ML VIAL IVP PRN (20:10)
[2018-08-22] MEDS ORDERED: NALOXONE HCL 0.4 MG/ML VIAL IVP PRN (20:10)
[2018-08-22] MEDS ORDERED: FLUSH 10 ML SYR IVP PRN (20:10)
--- NOTE | 2018-08-22 20:23 | Post Operative Progress Note ---
Post Operative Progress Note Date: Aug 22, 2018 Time: 20:11 Surgeon: Marquita Dictation number: [id number] Professional Fighter: Dr. Vo Anesthesia: GETA by Dr. August Pre-Op Diagnosis: Colostomy Post-Op Diagnosis: ROSIE Findings: None Procedure(s): Robotic colostomy takedown with mobilization of splenic flexure Specimen Removed:(May be N/A): Colostomy Anastomotic donuts Complications: None Fluids: 3.9L crystalloid 400mL UOP Estimated Blood Loss: 50mL Date OP Note Dictated: Aug 22, 2018 Time OP Note Dictated: 20:12 ALEX MCMAHAN MD Aug 22, 2018 20:23
[2018-08-22] MEDS: NORMOSOL R SOLN(*) 1000 ML BAG 1,000 ML IV PRN (20:31)
[2018-08-22] MEDS ORDERED: PCA LOCKBOX KEYS XX PRN (20:50)
[2018-08-22] MEDS: HYDROmorphone PCA 6 MG/30 ML IV PRN (21:31)
[2018-08-22] MEDS: AMPICILLIN/SULBACT (*) 3 GM VL 3 GM in NS(*) 0.9% 100 ML BAG 100 ML IVPB SCH (21:31)
--- NOTE | 2018-08-22 23:21 | OPERATIVE REPORT 1 ---
EVENT DATE: August 22, 2018 SURGEON: Elmer Juárez MD ANESTHESIOLOGIST: Owen Rojas MD ANESTHESIA: General endotracheal anesthesia. CASH SHORTAGE INVESTIGATOR: Johan Vo MD PREOPERATIVE DIAGNOSIS Colostomy. POSTOPERATIVE DIAGNOSIS Colostomy. PROCEDURE PERFORMED Robotic colostomy takedown with mobilization of splenic flexure. COMPLICATIONS None. CONDITION Stable. BLOOD LOSS 50 mL. URINE OUTPUT 400 mL. INTRAVENOUS FLUIDS Crystalloid 3.9L. SPECIMENS 1. Colostomy. 2. Anastomotic donuts. INDICATIONS This is a 63-year-old gentleman who three months ago was admitted with a colon obstruction due to what turned out to be a diverticular stricture, and I performed a To procedure due to the very distended colon. He has recovered without problems, and he is requesting to have his colostomy reversed. DESCRIPTION OF PROCEDURE The patient was brought to the operating room and placed supine on the operating table. General endotracheal anesthesia was administered, and he was placed in Yellofin stirrups and a Yee catheter inserted without problems. All pressure points and areas of mirrors were generously padded, and his abdomen was then prepped and draped in a sterile fashion. Time-out was completed, and I injected 0.5% bupivacaine plain into the right subcostal skin and made a transverse 5 mm incision in the right subcostal skin and inserted a Veress needle through this incision into the peritoneal cavity. I insufflated the peritoneal cavity to a pressure of 15 mmHg, and then under visualization through a 5 mm optical trocar with the camera unfocused, inserted the 5 mm port through this incision into the insufflated abdominal cavity. Next, I placed an 8 mm robotic port in the epigastric midline and two more 8 mm robotic ports in the right midabdomen about 8 cm from each other, and then a 12 mm robotic port in the right lower quadrant, all in a diagonal line. Once the ports were in place, I placed patient in Trendelenburg, brought in the robot, docked and targeted the robot, and inserted the camera and instruments. I then turned my attention to the pelvis and identified the sutures that I had left on the rectal stump. The rectal stump was already essentially flush with the peritoneal reflection, and so I cleaned it off a little bit, but this did not require much work, and I did not remove any of the rectal stump, as it was already flush with the peritoneal reflection. I then turned my attention to the colostomy and cleaned this off circumferentially, first robotically, and then scrubbed back in and divided the junction of the mucosa with the skin all the way down and freed this up. I then cut off the colostomy with a GABRIEL 55 mm stapler with a blue load and then passed the colostomy off the field, and then reduced the staple leading the divided colon back into the peritoneal cavity, and then obtained a seal with penetrating towel clamps on the skin incision where the colostomy was. The staple on the proximal colon was not long enough to get down to the rectal stump, so I proceeded to mobilize the splenic flexure with Dr. Vo's assistance in retracting. I divided the lateral white line of Toldt lateral to the descending colon all the way up to the splenic flexure, and then I took the omentum off the transverse colon from the middle portion of the transverse colon all the way to the splenic flexure, and got into the lesser sac and divided the gastrocolic ligament all the way over to the spleen. I sequentially divided the splenocolic attachments as well. This took some time because of quite a bit of adipose tissue that I had to work through in order to get this job done, although the patient externally was not too large, but had quite a bit of intra- abdominal adipose. Once the splenic flexure was mobilized, I brought the distal colon down into the pelvis, and it abutted right up against the rectal staple line, and so I had Dr. Vo hold this next to where the colostomy hole was, and I scrubbed back in and then pulled it out through the colostomy wound. I then cut off the staple line, placed a 25 mm and then a 29 mm sizer, and they both fit nicely, and so we obtained the 29 mm EEA stapler and I removed the anvil and put it in the colon, and then placed a 2-0 silk purse-string suture around the shaft of the anvil. I then dunked the colon and anvil back into the abdomen, irrigated and dried the pelvis, and then Dr. Vo went down between the patient's legs and inserted first the 29 mm sizer, and it went up into the staple line without problems, and so we inserted the 29 mm EEA stapler and then extended the trocar, and I engaged the anvil shaft onto the trocar with an anvil grasper and locked it into place. He then closed the anvil onto the stapler until the line was in the red zone, and then he fired the stapler and removed it. He inspected the donuts, and the rectum side had a complete donut. The sigmoid side did not have a completely circular donut, but then he obtained the colonoscope and inserted it in the patient's rectum while I held pressure on the sigmoid upstream from the anastomosis. He insufflated with CO2 and he visualized the anastomosis, and in fact I could see on the screen as well, and it looked like a completely circular anastomosis all the way around. He could get up proximal to this, and there was no bleeding from the anastomotic staple line. Lastly, there was no bubbling in the pelvis as I filled the pelvis with normal saline. I also used Firefly and confirmed good blood flow all the way through the distal colon and rectum, and it lit up quite abruptly with the Firefly with the ICG. I removed all the saline from the patient's pelvis, and then I went back to the robot after redocking and targeting and inserting instruments and then closed the posterior fascia with running V-Loc absorbable suture in a vertical fashion. I then scrubbed back in, and I closed the fashion at the 12 mm port site with the Steve-Pamela suture passer and an 0 Vicryl suture in a [id number] fashion, and this was airtight when this was completed. I then closed the skin at each port site with 4-0 Monocryl subcuticular sutures. I then closed the anterior fascia at the colostomy site with a running #1 Prolene suture. I then irrigated and dried the wound and then loosely closed the skin with just two interrupted 2-0 silk sutures. I then placed 0.25-inch Yeny drains into this wound and sutured them to the skin. I then cleaned and dried the skin and placed benzoin and Steri-Strips over the port incisions, and then covered these with sterile surgical dressings, and then covered the colostomy takedown site with dry 4x4 gauze, which was taped in place. Interestingly, there was not really much in the way of adhesions from the original surgery, fortunately. The patient was then awakened and extubated in the recovery room and transported to the recovery room in stable condition, having tolerated the procedure without any apparent problems. VALENTIN
[2018-08-23] VITALS (10 sets, daily range): BP systolic 100–121; BP diastolic 64–75; Ht 185.4 cm; Wt 88.0 kg
[2018-08-23] MEDS: ACETAMINOPHEN(*)1000 MG/100 ML 100 ML IVPB SCH ×5 (00:11→23:43)
[2018-08-23] MEDS ORDERED: INFLUENZA VIRUS VAC 0.5ML SYR IM ONLY ONE (00:55)
[2018-08-23] MEDS: AMPICILLIN/SULBACT (*) 3 GM VL 3 GM in NS(*) 0.9% 100 ML BAG 100 ML IVPB SCH ×4 (03:00→21:10)
[2018-08-23] MEDS: NORMOSOL R SOLN(*) 1000 ML BAG 1,000 ML IV PRN ×2 (04:47→14:15)
[2018-08-23 06:41] LABS: PLATELET COUNT, AUTOMATED 221 K/uL (150-450)
--- NOTE | 2018-08-23 07:15 | NUR ---
kaufman catheter is present when first assessing the pt on this shift. per report, pt has had kaufman since admission, however there is no documentation for it. documentation has been added starting with this shift
--- NOTE | 2018-08-23 08:01 | General Surgery Progress Note ---
Subjective Progress Notes Subjective No complaints this morning. Not much pain. No flatus yet. Physical Exam Vital Signs Date Time Temp Pulse Resp B/P (MAP) Pulse Ox O2 Delivery O2 Flow Rate FiO2 08/23/18 07:28 18 92 08/23/18 07:19 Nasal Cannula 1.5 08/23/18 06:42 98.0 62 119/67 (84) Intake and Output 08/23/18 06:59 Intake Total 5200 ml Output Total 550 ml Balance 4650 ml Intake Oral 0 ml IV Total 5200 ml Output Urine Total 500 ml Estimated Blood Loss 50 ml General Appearance: Alert, Awake, No Acute Distress, Afebrile GI: Other (soft, appropriate postop TTP, port dressings C/D/I, stoma dressing with blood stain) Extremities: Warm, Perfused Result Diagram: 08/23/18 0538 08/23/1838 Assessment and Plan Problems: (1) S/P colostomy takedown Status: Acute Assessment & Plan: 08/23/18: POD#1 s/p robotic colostomy takedown, mobilization of splenic flexure. Doing well this morning. Not much pain. Awaiting return of bowel function. Labs and vital all look good. Ambulate today, OOB to chair as much as possible, IS, aggressive pulmonary hygiene, PPI for GI prophylaxis, lovenox for VTE prophylaxis. Will let him have sips/chips today. Condition Stable. Time Spent: < 30 min Exam Sepsis Risk: No Definite Risk ALEX MCMAHAN MD Aug 23, 2018 08:00
[2018-08-23] MEDS: PANTOPRAZOLE SOD 40 MG IV VIAL IVP SCH (08:51)
--- NOTE | 2018-08-23 09:57 | Medical Nutrition Therapy ---
Nutrition Anthropometrics Height (Inches): 73.00 Height (Calculated Centimeters: 185.885397 Weight (Pounds): 194 Weight (Calculated Kilograms): 88.011 Paxton Nutrition Score: Adequate Paxton Nutrition Risk Score: 19 Dietary Referral Nutrition Risk Factors: Nutrition Risk Comment: Physical Findings Physical Appearance: Overweight BMI 25-29 Skin Appearance Skin Appearance: Edema Edema Location Modifier: Edema Location: Type of Edema: Degree of Edema: Gastrointestinal Symptoms GI Symtoms: Tube Present: Bowel Sounds: Recent Bowel Pattern: Stool Characteristics: Nutritional Diagnosis Nutritional Risk Acuity 1: GI Obstruction Nutritional Risk Acuity 2: New Colostomy Nutritional Acuity: 2-Moderate Nutrition Diagnosis: Altered GI Function Nutrition Etiology: Physiological Causes Nutrition Problem/Etiology/Sym: Altered GI function as related to physioloical causes as evidenced by new colostomy. Energy Requirement: 2290 (M-St. Jeor X1.1 (TEF) X .2 (activity factor) Protein Requirement: 88 (1 g protein/kg-increased for wound healing) Fluid Requirement: 2200 (25 mL/kg) Diet Type: NPO (Nothing by Mouth) Nutrition Intervention: Incr diet as tolerated Nutrition Monitoring & Eval Nutritional Goals Comment: Progress to AINSLEY as tolerated RD Patient Assessment Time: [address] Assessment Type: RD Assessment Patient Nutrition Acuity: 2-Moderate Follow Up Date: Aug 26, 2018 Nutritional Comment: Pt admitted for colostomy. On NPO/ICE CHIPS. Currently experiencing hypoactive bowel sounds and tenderness of the abdominal area. Na of 134 is low, random glucose of 125 is high, and Ca is 7.8 and low. Currently taking enoxaparin and parental elecrolytes.Monitor for progression to AINSLEY as tolerated. -FOUZIA ANDERSON Aug 23, 2018 09:57
[2018-08-24] MEDS: NORMOSOL R SOLN(*) 1000 ML BAG 1,000 ML IV PRN (00:03)
[2018-08-24] MEDS: HYDROmorphone PCA 6 MG/30 ML IV PRN (00:03)
[2018-08-24] MEDS: AMPICILLIN/SULBACT (*) 3 GM VL 3 GM in NS(*) 0.9% 100 ML BAG 100 ML IVPB SCH (03:34)
[2018-08-24 03:39] VITALS: BP 110/71
[2018-08-24] MEDS: ACETAMINOPHEN(*)1000 MG/100 ML 100 ML IVPB SCH ×4 (05:30→23:23)
[2018-08-24 06:02] LABS: PLATELET COUNT, AUTOMATED 173 K/uL (150-450)
--- NOTE | 2018-08-24 07:35 | General Surgery Progress Note ---
Subjective Progress Notes Subjective No complaints this morning. Not much pain. Passing flatus and stools. No N/V. Physical Exam Vital Signs Date Time Temp Pulse Resp B/P (MAP) Pulse Ox O2 Delivery O2 Flow Rate FiO2 08/24/18 06:32 14 90 08/24/18 03:39 98.2 58 110/71 (84) Nasal Cannula 1.0 Intake and Output 08/24/18 07:00 Intake Total 2759 ml Output Total 4040 ml Balance -1281 ml Intake Oral 200 ml IV Total 2559 ml Output Urine Total 4040 ml General Appearance: Alert, Awake, No Acute Distress, Afebrile Neuro: No Gross deficits Eyes: PERRLA GI: Soft and Non-Tender (UH is soft and easily reducible without TTP. Dressings all removed and incisions and colostomy takedown wound all look good without erythema.) Extremities: Warm, Perfused Result Diagram: 08/24/1851408/24/18514 Assessment and Plan Problems: (1) S/P colostomy takedown Status: Acute Assessment & Plan: 08/23/18: POD#1 s/p robotic colostomy takedown, mobilization of splenic flexure. Doing well this morning. Not much pain. Awaiting return of bowel function. Labs and vital all look good. Ambulate today, OOB to chair as much as possible, IS, aggressive pulmonary hygiene, PPI for GI prophylaxis, lovenox for VTE prophylaxis. Will let him have sips/chips today. 08/24/18: POD#2. Doing well. VSS and labs all look good. Will remove Yee, stop IV abx, start clear diet, and decrease IV fluids today. Ambulate, IS, PPI, lovenox.. Condition Stable. Time Spent: < 30 min Exam Sepsis Risk: No Definite Risk ALEX MCMAHAN MD Aug 24, 2018 07:35
[2018-08-24 07:44] VITALS: BP 108/82
[2018-08-24] MEDS: PANTOPRAZOLE SOD 40 MG IV VIAL IVP SCH (08:55)
[2018-08-24] MEDS: KCL/D1/2NS 20 MEQ 1000 ML 1,000 ML IV SCH ×2 (09:09→23:23)
[2018-08-24] MEDS: ENOXAPARIN 40 MG/0.4ML SYR SC SCH (09:09)
[2018-08-24 11:09] VITALS: BP 127/81
[2018-08-24 16:16] VITALS: BP 149/88
[2018-08-24 19:44] VITALS: BP 110/75
[2018-08-24 23:19] VITALS: BP 140/95
[2018-08-25 03:26] VITALS: BP 132/66
[2018-08-25] MEDS: HYDROmorphone PCA 6 MG/30 ML IV PRN (04:12)
[2018-08-25] MEDS: ACETAMINOPHEN(*)1000 MG/100 ML 100 ML IVPB SCH (05:32)
[2018-08-25 07:09] VITALS: BP 149/102
[2018-08-25] MEDS ORDERED: ACETAMINOPHEN 325 MG TAB PO PRN (08:00)
[2018-08-25] MEDS ORDERED: IBUPROFEN 200 MG TAB PO PRN (08:00)
--- NOTE | 2018-08-25 08:00 | General Surgery Progress Note ---
Subjective Progress Notes Subjective No complaints this morning. Still passing flatus. Feels like he needs to have another BM. Tolerating clear diet. Feels like he wants to try regular food. Physical Exam Vital Signs Date Time Temp Pulse Resp B/P (MAP) Pulse Ox O2 Delivery O2 Flow Rate FiO2 08/25/18 07:10 90 08/25/18 07:10 Room Air 08/25/18 07:09 98.4 68 18 149/102 (118) 08/25/18 03:26 1.0 Intake and Output 08/25/18 07:00 Intake Total 4585 ml Output Total 400 ml Balance 4185 ml Intake Oral 1220 ml IV Total 3365 ml Output Urine Total 400 ml # Voids 8 General Appearance: Alert, Awake, No Acute Distress, Afebrile GI: Soft and Non-Tender (Incisions and stoma takedown wound all look good without erythema or drainage.) Extremities: Warm, Perfused Result Diagram: 08/24/18 0515 08/24/18 0515 Assessment and Plan Problems: (1) S/P colostomy takedown Status: Acute Assessment & Plan: 08/23/18: POD#1 s/p robotic colostomy takedown, mobilization of splenic flexure. Doing well this morning. Not much pain. Awaiting return of bowel function. Labs and vital all look good. Ambulate today, OOB to chair as much as possible, IS, aggressive pulmonary hygiene, PPI for GI prophylaxis, lovenox for VTE prophylaxis. Will let him have sips/chips today. 08/24/18: POD#2. Doing well. VSS and labs all look good. Will remove Kaufman, stop IV abx, start clear diet, and decrease IV fluids today. Ambulate, IS, PPI, lovenox.. 08/25/18: POD#3. Doing well. VSS. Bowel function returning. Will stop IV fluids, convert meds to PO, and start regular diet today. Urinating without problems since kaufman removed yesterday. Ambulate, IS, PPI, lovenox. Condition Stable. Time Spent: < 30 min Exam Sepsis Risk: No Definite Risk ALEX MCMAHAN MD Aug 25, 2018 08:00
[2018-08-25] MEDS: ENOXAPARIN 40 MG/0.4ML SYR SC SCH (10:10)
[2018-08-25] MEDS: PANTOPRAZOLE SOD 40 MG TABEC PO SCH (10:10)
[2018-08-25 18:36] VITALS: BP 139/102
[2018-08-25 23:56] VITALS: BP 142/88
[2018-08-26 04:18] VITALS: BP 140/101
[2018-08-26 07:00] VITALS: BP 126/90
--- NOTE | 2018-08-26 08:32 | General Surgery Progress Note ---
Subjective Progress Notes Subjective Feeling better this morning. Passing more flatus. Didn't pass much flatus yesterday and no stool. Didn't eat much yesterday. He's feeling better this morning. Physical Exam Vital Signs Date Time Temp Pulse Resp B/P (MAP) Pulse Ox O2 Delivery O2 Flow Rate FiO2 08/26/18 07:35 90 Room Air 08/26/18 07:00 98.5 67 16 126/90 (102) 08/25/18 03:26 1.0 Intake and Output 08/26/18 06:59 Intake Total 1158 ml Balance 1158 ml Intake Oral 800 ml IV Total 358 ml # Voids 4 General Appearance: Alert, Awake, No Acute Distress, Afebrile GI: Other (Soft, lower abdominal TTP, incisions all look good without erythema or drainage.) Extremities: Warm, Perfused Result Diagram: 08/24/18 0508/24/18 05 Assessment and Plan Problems: (1) S/P colostomy takedown Status: Acute Assessment & Plan: 08/23/18: POD#1 s/p robotic colostomy takedown, mobilization of splenic flexure. Doing well this morning. Not much pain. Awaiting return of bowel function. Labs and vital all look good. Ambulate today, OOB to chair as much as possible, IS, aggressive pulmonary hygiene, PPI for GI prophylaxis, lovenox for VTE prophylaxis. Will let him have sips/chips today. 08/24/18: POD#2. Doing well. VSS and labs all look good. Will remove Kaufman, stop IV abx, start clear diet, and decrease IV fluids today. Ambulate, IS, PPI, lovenox.. 08/25/18: POD#3. Doing well. VSS. Bowel function returning. Will stop IV fluids, convert meds to PO, and start regular diet today. Urinating without problems since kaufman removed yesterday. Ambulate, IS, PPI, lovenox. 08/26/18: POD#4. Doing well. VSS. Bowel function continues to improve. Will keep in house today and see how he eats and ambulates. Potential d/c tomorrow if he does better today. Condition Stable. Time Spent: < 30 min Exam Sepsis Risk: No Definite Risk ALEX MCMAHAN MD Aug 26, 2018 08:32
[2018-08-26] MEDS: ENOXAPARIN 40 MG/0.4ML SYR SC SCH (09:56)
[2018-08-26] MEDS: PANTOPRAZOLE SOD 40 MG TABEC PO SCH (09:56)
--- NOTE | 2018-08-26 11:01 | Medical Nutrition Therapy ---
Nutrition Anthropometrics Height (Inches): 73.00 Height (Calculated Centimeters: 185.926063 Weight (Pounds): 194 Weight (Calculated Kilograms): 88.011 BMI: 25.6 Paxton Nutrition Score: Adequate Paxton Nutrition Risk Score: 20 Dietary Referral Nutrition Risk Factors: Nutrition Risk Comment: Physical Findings Physical Appearance: Overweight BMI 25-29 Skin Appearance Skin Appearance: Edema Edema Location Modifier: Edema Location: Type of Edema: Degree of Edema: Gastrointestinal Symptoms GI Symtoms: Tube Present: Bowel Sounds: Recent Bowel Pattern: Stool Characteristics: Nutritional Diagnosis Nutritional Risk Acuity 3: Colostomy (colostomy takedown) Nutritional Acuity: 3-Mild Nutrition Diagnosis: Altered GI Function Nutrition Etiology: Physiological Causes Nutrition Problem/Etiology/Sym: Altered GI function as related to physioloical causes as evidenced by colostomy takedown. Energy Requirement: 2290 (M-St. Jeor X1.1 (TEF) X .2 (activity factor) Protein Requirement: 88 (1 g protein/kg-increased for wound healing) Fluid Requirement: 2200 (25 mL/kg) Diet Type: Diet as Tolerated AINSLEY/REG Nutrition Intervention: Cont diet as ordered, Encourage intake Nutrition Monitoring & Eval Nutrition Goals: Eat 75-100% Meal RD Patient Assessment Time: [address] Assessment Type: RD Re-Assessment Patient Nutrition Acuity: 2-Moderate Follow Up Date: Aug 30, 2018 Nutritional Comment: Pt admitted for colostomy. On NPO/ICE CHIPS. Currently experiencing hypoactive bowel sounds and tenderness of the abdominal area. Na of 134 is low, random glucose of 125 is high, and Ca is 7.8 and low. Currently taking enoxaparin and parental elecrolytes.Monitor for progression to AINSLEY as tolerated. -AKG 08/26 Pt admitted for colostomy takedown. Pt has hyperactive bowel sounds and is currently on regular diet. Pt refused supper but ate 40% of breakfast this morning. Pt has no concerns about diet. Hgb/Hct cont low at 13.5/41.6. Will cont to monitor and encourage intake. NOBLE KENNEDY Aug 26, 2018 10:08
[2018-08-26 15:12] VITALS: BP 124/90
[2018-08-26 19:59] VITALS: BP 120/87
[2018-08-26 23:35] VITALS: BP 120/87
[2018-08-27 06:50] VITALS: BP 128/86
[2018-08-27] MEDS: PANTOPRAZOLE SOD 40 MG TABEC PO SCH (08:49)
[2018-08-27] MEDS ORDERED: PER PO (08:58)
--- NOTE | 2018-08-27 09:02 | Short(Outpt) Discharge Summary ---
Discharge Summary Reason for Hosp/Final Diag: (1) S/P colostomy takedown Status: Acute Hospital Course & Plan: 08/23/18: POD#1 s/p robotic colostomy takedown, mobilization of splenic flexure. Doing well this morning. Not much pain. Awaiting return of bowel function. Labs and vital all look good. Ambulate today, OOB to chair as much as possible, IS, aggressive pulmonary hygiene, PPI for GI prophylaxis, lovenox for VTE prophylaxis. Will let him have sips/chips today. 08/24/18: POD#2. Doing well. VSS and labs all look good. Will remove Kaufman, stop IV abx, start clear diet, and decrease IV fluids today. Ambulate, IS, PPI, lovenox.. 08/25/18: POD#3. Doing well. VSS. Bowel function returning. Will stop IV fluids, convert meds to PO, and start regular diet today. Urinating without problems since kaufman removed yesterday. Ambulate, IS, PPI, lovenox. 08/26/18: POD#4. Doing well. VSS. Bowel function continues to improve. Will keep in house today and see how he eats and ambulates. Potential d/c tomorrow if he does better today. 08/27/18: POD#5. Doing well. Afebrile/VSS. Good bowel function. Tolerating diet. Minimal pain. Will d/c to home today. Departure Discharge to: Home, Self Care Discharge Instructions Home Meds Active Scripts Oxycodone/Acetaminophen (OXYCODONE/ACETAMINOPHEN 5MG/325 MG) 5 Mg/325 Mg Tab, 1 TAB PO Q4H PRN for PAIN, #30 TAB 0 Refills Prov:ALEX JUÁREZ MD 08/27/18 Reported Medications Glucosamine Sulfate 2KCL (GLUCOSAMINE) 1,000 Mg Tablet, 1000 MG PO QDAY 08/07/18 Ibuprofen (IBUPROFEN) 200 Mg Capsule, 2 CAP PO PRN, CAPSULE 07/03/18 Multivitamin (MULTI VITAMIN DAILY) 1 Each Tablet, 1 EACH PO DAILY 07/28/14 Follow up Referrals: General Surgery - 09/11/18 @ Surgery, General with ALEX JUÁREZ MD You have a follow up appointment scheduled with Dr. Juárez on 09/11/18, at 4:45pm. Diet: Regular Activity: No Heavy Lifting Special Instructions: You may shower as desired but don't immerse the incisions or colostomy wound until completely healed without any drainage. Remove the colostomy wound dressing before showering and replace with a new dry dressing after showering. Avoid any activity that involves straining or lifting more than 10 pounds for 6 weeks after surgery. ALEX JUÁREZ MD Aug 27, 2018 09:02
== END 2018-08-27 11:30 | disposition home or self-care (01) | DRG 346 ==
LOC: OR 02:41 → MED 20:54
PROVIDERS: ADMIT Surgery; ATTEND Surgery
PROC: 8E0W8CZ Robotic Assisted Procedure of Trunk Region, Via Natural or Artificial Opening Endoscopic (ICD-10-PCS; 2018-08-22)
PROC: 0DSM4ZZ Reposition Descending Colon, Percutaneous Endoscopic Approach (ICD-10-PCS; principal; 2018-08-22 12:15)
DX: Z43.3 Encounter for attention to colostomy (principal)
CPT/HCPCS: 36415; 82310; 82374; 82435; 82565; 82947; 84132; 84295; 84520; 85025; 88304; C9113; J0131; J0295; J1100; J1170; J1650; J2001; J2250; J2405; J2704; J2795; J3010; J3480; J3490; J7050

== ENCOUNTER 2018-11-01 00:51 | Observation (INO) | payer OTHER ==
[2018-08-23 09:46] VITALS: Ht 185.4 cm; Wt 92.1 kg
[2018-11-01] VITALS (16 sets, daily range): BP systolic 111–152; BP diastolic 74–97
[~2018-11-01] VITALS: Ht 185.4 cm; Wt 92.1 kg
[2018-11-01] MEDS ORDERED: ACETAMINOPHEN 500 MG TAB PO ONE (11:30)
[2018-11-01] MEDS ORDERED: MIDAZOLAM 2 MG/2 ML VIAL IVP PRN (11:30)
[2018-11-01] MEDS ORDERED: FAMOTIDINE 20 MG TAB PO ONE (11:30)
[2018-11-01] MEDS ORDERED: LIDOCAINE/SOD BICARB 8.4% SYR ID ONE (11:30)
[2018-11-01] MEDS ORDERED: ceFAZolin(*) 2GM/D5W 50ML 50 ML IVPB ONE (11:30)
[2018-11-01] MEDS ORDERED: PREGABALIN 150 MG CAPSULE PO ONE (11:30)
[2018-11-01] MEDS ORDERED: NORMOSOL R SOLN(*) 1000 ML BAG 1,000 ML IV PRN (11:30)
[2018-11-01] MEDS ORDERED: ROPIVACAINE 0.2% 20 ML VIAL ONE (13:09)
[2018-11-01] MEDS ORDERED: PROPOFOL EMUL(*) 10MG/ML 20 ML 40 ML ONE (13:22)
[2018-11-01] MEDS ORDERED: ROCURONIUM BROM 10 MG/ML 10 ML ONE (13:22)
[2018-11-01] MEDS ORDERED: ONDANSETRON 4 MG/2 ML VIAL ONE (13:22)
[2018-11-01] MEDS ORDERED: DEXAMETHASONE SOD PHOS 10MG/ML ONE (13:22)
[2018-11-01] MEDS ORDERED: fentaNYL CITR 100 MCG/2 ML AMP ONE ×2 (15:13→16:20)
[2018-11-01] MEDS ORDERED: EPINEPHrine HCL 1 MG/ML AMP ONE (15:14)
[2018-11-01] MEDS ORDERED: SUGAMMADEX SOD 500 MG/5 ML SDV ONE (15:19)
[2018-11-01] MEDS ORDERED: OXYC-854 PO (16:14)
[2018-11-01] MEDS ORDERED: DOCU-416 PO (16:14)
--- NOTE | 2018-11-01 16:17 | Short(Outpt) Discharge Summary ---
Discharge Summary Reason for Hosp/Final Diag: (1) Umbilical hernia Status: Chronic Hospital Course & Plan: Robotic UHR completed without problems. Departure Discharge to: Home, Self Care Discharge Instructions Home Meds Active Scripts Docusate Sodium (COLACE) 100 Mg Capsule, 1 CAP PO BID, #30 CAP 0 Refills TAKE WITH A FULL GLASS OF WATER Prov:ALEX MCMAHAN MD 11/01/18 Oxycodone Hcl/Acet 5/325 Mg (ENDOCET 5-325 TABLET) 1 Each Tablet, 1 TAB PO Q4H PRN for PAIN, #30 TAB 0 Refills Prov:ALEX MCMAHAN MD 11/01/18 Reported Medications Glucosamine Sulfate 2KCL (GLUCOSAMINE) 1,000 Mg Tablet, 1000 MG PO QDAY 08/07/18 Multivitamin (MULTI VITAMIN DAILY) 1 Each Tablet, 1 EACH PO DAILY 07/28/14 Discontinued Reported Medications Ibuprofen (IBUPROFEN) 200 Mg Capsule, 2 CAP PO PRN, CAPSULE 07/03/18 Follow up Referrals: General Surgery - 11/19/18 @ Surgery, General with ALEX MCMAHAN MD You have a follow up appointment scheduled with Dr. Mcmahan on 11/19/18, at 2:30pm. Diet: Regular Activity: No Heavy Lifting Special Instructions: You may remove the white surgical dressings on 11/03/18, then you can shower. After showering, leave the incisions open to air but leave the steristrips in place until they fall off on their own. Do not immerse the incisions for 2 weeks. Wear the abdominal binder at all time other than while bathing for 30 days after surgery and avoid any activity that involves straining or lifting more than 10 pounds for 6 weeks after surgery. Problem Qualifiers (1) Umbilical hernia: Obstruction and gangrene presence: without obstruction or gangrene Qualified Codes: K42.9 - Umbilical hernia without obstruction or gangrene ALEX MCMAHAN MD Nov 01, 2018 16:17
--- NOTE | 2018-11-01 16:27 | Post Operative Progress Note ---
Post Operative Progress Note Date: Nov 01, 2018 Time: 16:18 Surgeon: Marquita Dictation number: [id number] Anesthesia: GETA by Dr. Kwok Pre-Op Diagnosis: [facility] Post-Op Diagnosis: ROSIE Findings: C/W dx Procedure(s): Robotic UHR Specimen Removed:(May be N/A): None Complications: None Fluids: See anesthesia records Estimated Blood Loss: Minimal Date OP Note Dictated: Nov 01, 2018 Time OP Note Dictated: 16:18 ALEX MCMAHAN MD Nov 01, 2018 16:27
[2018-11-01] MEDS ORDERED: ACETAMINOPHEN 325 MG TAB PO PRN (17:55)
[2018-11-01] MEDS ORDERED: MORPHINE 2 MG/ML SYR IVP PRN (17:55)
[2018-11-01] MEDS ORDERED: ONDANSETRON 4 MG/2 ML VIAL IVP PRN (17:55)
[2018-11-01] MEDS ORDERED: FLUSH 10 ML SYR IVP PRN (17:55)
[2018-11-01] MEDS ORDERED: NS(*) 0.9% 1000 ML BAG 1,000 ML IV PRN (17:55)
--- NOTE | 2018-11-01 20:02 | OPERATIVE REPORT 1 ---
EVENT DATE: November 01, 2018 SURGEON: Elmer Juárez MD ANESTHESIOLOGIST: Ankit Kwok MD ANESTHESIA: General endotracheal anesthesia. PREOPERATIVE DIAGNOSIS Umbilical hernia. POSTOPERATIVE DIAGNOSIS Umbilical hernia. PROCEDURE PERFORMED Robotic umbilical hernia repair with mesh. COMPLICATIONS None. CONDITION Stable. BLOOD LOSS Minimal. FINDINGS This patient had a 5 x 6 cm umbilical defect. No other intra-abdominal findings. His colostomy takedown site was well healed, without any evidence of hernias, as was the previous 12 mm robotic port site from his previous colostomy takedown which had appeared to be healed without any hernia. INDICATIONS This is a 63-year-old gentleman whom I have operated on several times within the last six months, which started with an exploratory laparotomy with sigmoid colectomy and colostomy for a colonic obstruction due to a sigmoid stricture from diverticulitis. He then went back for a robotic colostomy takedown almost three months ago and has recovered well from this. He has had an umbilical hernia the entire time, which obviously has not been addressed because of the nature of the previous surgeries, but now he is requesting to have the umbilical hernia repaired. Because of the size of the fascial defect, I have recommended a robotic umbilical hernia repair. DESCRIPTION OF PROCEDURE The patient was brought to the operating room and placed upon the operating table. General endotracheal anesthesia was administered, and his abdomen was prepped and draped in a sterile fashion. Timeout was completed, and I anesthetized the skin in the right subcostal area and went right through the previous port site in the right upper quadrant with the Veress needle after making an incision in the skin and then insufflated the abdomen to a pressure of 15 mmHg. I then inserted an 8 mm robotic optical trocar into the patient's abdomen with the camera in and focused, and then inserted the robotic camera in through this port. Under direct visualization, I placed a 12 mm robotic port in the right lower quadrant where the previous 12 mm port was located and then another 8 mm robotic port in the far lateral anterior axillary line in the right abdomen. I then brought the robot in, docked and targeted the robot, inserted the instruments, and then went to the console. I the peritoneum from the abdominal wall and created a preperitoneal space and removed the hernia sac from the defect. I then removed the peritoneum and hernia sac from the abdominal cavity through the 12 mm port site. I then closed the fascial defect in a transverse fashion with a running V-Loc absorbable suture. After this was completed, I obtained an 11 x 14 cm piece of Ventrio hernia mesh from [employer]. I then placed a Prolene suture right in the middle of it on the Vicryl side. I rolled this up and inserted it through the 12 mm port along with a couple more absorbable V-Loc sutures and placed a suture passer through a small stab incision at the umbilicus and then pulled the Prolene up through the stab incision to hold the mesh up in good position. The mesh was placed with the long axis laterally since this is where I closed the fascial defect, and then I sutured this in around its complete circumference with a running V-Loc absorbable suture and then placed another line of absorbable V-Loc suture running the long axis of the mesh along the center of the mesh. It laid nice with no wrinkles or kinks, and it covered the defect quite nicely with several centimeters of overlap on all sides. I then removed the robotic instruments, undocked the robot, and scrubbed back in. I then placed the camera through the right upper quadrant port, removed the 12 mm port, and then used a Kathy Santiago suture passer and placed a [id number] Vicryl suture through the fascia in the 12 mm port site. I tied these down with good reapproximation of fascial edges. I then desufflated the abdomen and removed all the ports. I then closed the skin at each remaining port site with 4-0 Monocryl subcuticular sutures. The skin edges in two upper ports did not come together quite as nicely as I would like, so I placed interrupted 3-0 chromic sutures to reapproximate them there and then placed a 3-0 chromic suture in the umbilical stab incision in the midline. The skin was cleaned and dried, and Steri-Strips were applied, followed by sterile surgical dressings. I then placed an abdominal binder on the patient, and he was then awakened and extubated in the operating room and transported to the recovery room in stable condition having tolerated the procedure without any apparent problems. VALENTIN
[2018-11-01] MEDS: DOCUSATE SODIUM 100 MG CAP PO SCH (20:37)
[2018-11-01] MEDS: FAMOTIDINE 20 MG TAB PO SCH (20:37)
[2018-11-02] MEDS: IBUPROFEN 200 MG TAB PO PRN ×2 (00:10→06:21)
[2018-11-02 02:38] VITALS: BP 109/69
[2018-11-02] MEDS ORDERED: ceFAZolin(*) 2GM/D5W 50ML 50 ML IVPB SCH (06:00)
[2018-11-02] MEDS ORDERED: NS(*) 0.9% 250 ML BAG 250 ML ONE (06:34)
[2018-11-02 06:42] VITALS: BP 104/69
[2018-11-02] MEDS: DOCUSATE SODIUM 100 MG CAP PO SCH (08:48)
[2018-11-02] MEDS: FAMOTIDINE 20 MG TAB PO SCH (08:48)
[2018-11-02] MEDS ORDERED: ENOXAPARIN 40 MG/0.4ML SYR SC SCH (09:00)
== END 2018-11-02 10:14 | disposition home or self-care (01) ==
LOC: OR 00:51 → MED 18:40 → INTOOBSV 18:40
PROVIDERS: ADMIT Surgery; ATTEND Surgery
DX: K42.9 Umbilical hernia without obstruction or gangrene (principal); Z93.3 Colostomy status
CPT/HCPCS: 49652; 96372; C1781; G0378; J1100; J1650; J2250; J2405; J2704; J2795; J3010; J7050; J0171; J0690